=== PATIENT | male | born 1945 | race Caucasian/White ===

== ENCOUNTER 2019-03-28 00:50 | Inpatient (IN) | payer BC | END 2019-03-29 14:40 | disposition home or self-care (01) | LOC: ER 00:50 → TELE 09:00 → TELE-WESTW 16:53 | PROC: 02703DZ Dilation of Coronary Artery, One Artery with Intraluminal Device, Percutaneous Approach (ICD-10-PCS; principal; ~2019-03-28) | PROC: B2111ZZ Fluoroscopy of Multiple Coronary Arteries using Low Osmolar Contrast (ICD-10-PCS; ~2019-03-28) | PROC: 4A023N7 Measurement of Cardiac Sampling and Pressure, Left Heart, Percutaneous Approach (ICD-10-PCS; ~2019-03-28) | PROC: B2151ZZ Fluoroscopy of Left Heart using Low Osmolar Contrast (ICD-10-PCS; ~2019-03-28) | DX: I21.4 Non-ST elevation (NSTEMI) myocardial infarction (principal); I25.10 Atherosclerotic heart disease of native coronary artery without angina pectoris; J44.9 Chronic obstructive pulmonary disease, unspecified; E78.5 Hyperlipidemia, unspecified; I12.9 Hypertensive chronic kidney disease with stage 1 through stage 4 chronic kidney disease, or unspecified chronic kidney disease; N18.9 Chronic kidney disease, unspecified ==

== ENCOUNTER 2023-08-29 09:31 | Inpatient (IN) | payer BC, OTHER ==
[~2023-08-29] VITALS: Ht 160 cm; Wt 79.5 kg
[~2023-08-29 09:31] MED LIST: ASA PO; PLAVIX PO
[2023-08-29 10:20] VITALS: PULSE 79; RESP 18; O2SAT 91
[2023-08-29 10:47] LABS: Basophils # (auto) 0 10 ^3/uL (0-0.2); Basophils % (auto) 0.4 % (0.0-2.0); Eosinophils # (auto) 0.1 10 ^3/uL (0-0.8); Eosinophils % (auto) 1.1 % (0.0-7.0); Hematocrit 50.3 % (41.0-53.0); Hemoglobin 16.2 g/dL (13.5-17.5); Lymphocytes # (auto) 1.5 10 ^3/uL (0.4-5.4); Lymphocytes % (auto) 15.7 % (10.0-50.0); Mean Corpuscular Hemoglobin 28.7 pg (28.0-32.0); Mean Corpuscular Hgb Conc. 32.3 g/dL (32.0-36.0); Monocytes # (auto) 0.7 10 ^3/uL (0-1.3); Neutrophils # (auto) 7.3 10 ^3/uL (1.6-8.6); Neutrophils % (auto) 75.8 % (37.0-80.0); Nucleated Red Blood Cells % 0.2 %; Red Blood Cells 5.65 10^6/uL (4.5-5.90); White Blood Cell 9.7 10^3/uL (4.4-10.8)
[2023-08-29 11:11] LABS: Alanine Aminotransferase 547 U/L (7-40); Albumin 3.8 g/dL (3.2-4.8); Alkaline Phosphatase 256 U/L (46-116); Anion Gap 7 (5-15); Aspartate Aminotransferase 591 U/L (13-40); BUN/Creatinine Ratio 16.4 (10.0-20.0); Bilirubin, Total 0.9 mg/dL (0.2-1.0); Blood Urea Nitrogen 39 mg/dL (9-23); Calcium 9.1 mg/dL (8.5-10.1); Carbon Dioxide 24 mmol/L (20-30); Chloride 103 mmol/L (98-107); Glucose 131 mg/dL (74-106); Sodium 134 mmol/L (136-145)
[2023-08-29 11:12] LABS: Total Protein 6.6 g/dL (5.7-8.2)
[2023-08-29] MEDS ORDERED: cefTRIAXone 1GM/50ML D5W 50 ML IV ONE (11:15)
[2023-08-29] MEDS ORDERED: LACTULOSE 20Gm/30ML SOLN PO ONE (11:30)
[2023-08-29 11:44] LABS: Potassium 6.9 mmol/L (3.5-5.1)
[2023-08-29] MEDS ORDERED: SODIUM ZIRCONIUM CYCL 10 GM PAK PO ONE (12:00)
[2023-08-29] MEDS ORDERED: FUROSEMIDE 20 MG/2 ML VIAL IV ONE (12:00)
[2023-08-29] MEDS ORDERED: InsuLIN REG 1unit/0.01ml Soln (100units/ml) IV ONE (12:00)
[2023-08-29] MEDS ORDERED: ALBUTEROL SULF 2.5 MG/0.5ML(0.5%) NEB SOLN NEB ONE (12:00)
[2023-08-29] MEDS ORDERED: SODIUM BICARBONATE 8.4% INJ 50ML SYRINGE IV ONE (12:00)
[2023-08-29] MEDS ORDERED: CALCIUM GLUC 1,000mg/50ml-NS 50 ML IV ONE (12:00)
[2023-08-29] MEDS ORDERED: DEXTROSE (50%) 50ML SYRG IV ONE (12:00)
[2023-08-29 13:10] LABS: Urine Bacteria MOD /hpf (None Seen); Urine Blood Negative /uL (Negative); Urine Clarity HAZY (Clear); Urine Color Colorless (Yellow); Urine Protein, UAD TRACE (Negative); Urine Specific Gravity 1.009 (1.001-1.035); Urine Urobilinogen Normal (Negative); Urine WBC 70 /hpf (0 - 3)
[2023-08-29] MEDS ORDERED: SODIUM CHLORIDE 0.9% 1,000 ML IV ONE ×2 (14:45→17:00)
[2023-08-29] MEDS ORDERED: LEVO750T8 PO ×2 (16:34)
[2023-08-29] MEDS ORDERED: PIPERACILLIN-TAZO 4.5GM 100 ML IV ONE (17:00)
[2023-08-29] MEDS ORDERED: MORPHINE SULFATE INJ 2 MG/ml SYRG IV PRN (17:00)
[2023-08-29] MEDS ORDERED: PIPERACILLIN-TAZOB 2.25GM 50 ML IV SCH (17:00)
[2023-08-29] MEDS ORDERED: NITROGLYCERIN 0.4 MG SL TAB SL PRN (17:00)
[2023-08-29 17:17] LABS: Base Excess 0.3 mmol/L (-2.0-2.0)
[2023-08-29] MEDS ORDERED: LACTULOSE 20Gm/30ML SOLN PO PRN (18:15)
[2023-08-29] MEDS ORDERED: HYDROcodone-ACET 5/325MG TAB PO PRN (18:15)
[2023-08-29 18:45] VITALS: BP 136/84; PULSE 72; RESP 20; O2SAT 94
[2023-08-29 18:52] LABS: Alanine Aminotransferase 482 U/L (7-40); Albumin 3.9 g/dL (3.2-4.8); Alkaline Phosphatase 221 U/L (46-116); Anion Gap 8 (5-15); Aspartate Aminotransferase 424 U/L (13-40); BUN/Creatinine Ratio 11.5 (10.0-20.0); Calcium 8.9 mg/dL (8.5-10.1); Carbon Dioxide 24 mmol/L (20-30); Chloride 107 mmol/L (98-107); Glucose 115 mg/dL (74-106); Sodium 139 mmol/L (136-145)
[2023-08-29 18:53] LABS: Bilirubin, Total 0.8 mg/dL (0.2-1.0); Total Protein 6.9 g/dL (5.7-8.2)
[2023-08-29 18:55] LABS: Blood Urea Nitrogen 26 mg/dL (9-23)
[2023-08-29 19:15] VITALS: PULSE 77; RESP 20; O2SAT 91
[2023-08-29] MEDS: methylPREDNISolone SOD SUCC 40 MG/ML VL IV SCH (22:13)
[2023-08-29 22:32] VITALS: BP 104/67; PULSE 61; RESP 20; TEMP 97.5; O2SAT 95
[2023-08-29 23:34] VITALS: BP 104/67; PULSE 61; RESP 20; TEMP 36.4; O2SAT 95
[2023-08-30] VITALS (10 sets, daily range): BP systolic 105–136; BP diastolic 41–81; PULSE 56–87; RESP 18–20; TEMP 97.3–97.9; O2SAT 91–98
[2023-08-30 05:42] LABS: Basophils # (auto) 0 10 ^3/uL (0-0.2); Basophils % (auto) 0.2 % (0.0-2.0); Eosinophils # (auto) 0 10 ^3/uL (0-0.8); Hematocrit 44.8 % (41.0-53.0); Hemoglobin 14.2 g/dL (13.5-17.5); Lymphocytes # (auto) 0.6 10 ^3/uL (0.4-5.4); Lymphocytes % (auto) 6.8 % (10.0-50.0); Mean Corpuscular Hemoglobin 28.3 pg (28.0-32.0); Mean Corpuscular Hgb Conc. 31.8 g/dL (32.0-36.0); Mean Corpuscular Volume 88.9 fL (80.0-100.0); Monocytes # (auto) 0.1 10 ^3/uL (0-1.3); Monocytes % (auto) 1.5 % (0.0-12.0); Neutrophils # (auto) 8.5 10 ^3/uL (1.6-8.6); Neutrophils % (auto) 91.5 % (37.0-80.0); Red Blood Cells 5.04 10^6/uL (4.5-5.90); Red Cell Distribution Width 17.1 % (11.8-14.3); White Blood Cell 9.3 10^3/uL (4.4-10.8)
[2023-08-30] MEDS: methylPREDNISolone SOD SUCC 40 MG/ML VL IV SCH ×3 (05:48→21:15)
[2023-08-30] MEDS: PIPERACILLIN-TAZOB 3.375GM 100 ML IV SCH ×2 (05:49→17:55)
[2023-08-30 05:58] LABS: Alanine Aminotransferase 358 U/L (7-40); Albumin 3.4 g/dL (3.2-4.8); Alkaline Phosphatase 170 U/L (46-116); Anion Gap 6 (5-15); Aspartate Aminotransferase 236 U/L (13-40); BUN/Creatinine Ratio 12.1 (10.0-20.0); Bilirubin, Total 0.9 mg/dL (0.2-1.0); Blood Urea Nitrogen 24 mg/dL (9-23); Calcium 8.4 mg/dL (8.5-10.1); Carbon Dioxide 26 mmol/L (20-30); Chloride 108 mmol/L (98-107); Glucose 140 mg/dL (74-106); Potassium 4.8 mmol/L (3.5-5.1); Sodium 140 mmol/L (136-145); Total Protein 5.9 g/dL (5.7-8.2)
[2023-08-30] MEDS ORDERED: AZITHROMYCIN 500MG/ 250ML 250 ML IV SCH (10:00)
[2023-08-30] MEDS: ALBUTEROL SULF 2.5 MG/0.5ML(0.5%) NEB SOLN NEB PRN (10:45)
[2023-08-31] VITALS (12 sets, daily range): BP systolic 112–139; BP diastolic 59–76; PULSE 57–74; RESP 16–20; TEMP 97.5–98.6; O2SAT 91–100
[2023-08-31] MEDS: PIPERACILLIN-TAZOB 3.375GM 100 ML IV SCH ×2 (05:30→21:17)
[2023-08-31] MEDS: methylPREDNISolone SOD SUCC 40 MG/ML VL IV SCH ×3 (05:30→21:16)
[2023-08-31 06:45] LABS: Basophils # (auto) 0 10 ^3/uL (0-0.2); Basophils % (auto) 0.2 % (0.0-2.0); Eosinophils # (auto) 0 10 ^3/uL (0-0.8); Hematocrit 44.2 % (41.0-53.0); Hemoglobin 14.4 g/dL (13.5-17.5); Lymphocytes # (auto) 0.8 10 ^3/uL (0.4-5.4); Lymphocytes % (auto) 5.7 % (10.0-50.0); Mean Corpuscular Hemoglobin 28.7 pg (28.0-32.0); Mean Corpuscular Hgb Conc. 32.7 g/dL (32.0-36.0); Mean Corpuscular Volume 87.9 fL (80.0-100.0); Monocytes # (auto) 0.4 10 ^3/uL (0-1.3); Neutrophils # (auto) 12.3 10 ^3/uL (1.6-8.6); Neutrophils % (auto) 91.1 % (37.0-80.0); Red Blood Cells 5.03 10^6/uL (4.5-5.90); Red Cell Distribution Width 16.9 % (11.8-14.3); White Blood Cell 13.5 10^3/uL (4.4-10.8)
[2023-08-31] MEDS: ALBUTEROL SULF 2.5 MG/0.5ML(0.5%) NEB SOLN NEB PRN ×2 (06:49→11:31)
[2023-08-31 07:07] LABS: Alanine Aminotransferase 273 U/L (7-40); Albumin 3.7 g/dL (3.2-4.8); Alkaline Phosphatase 169 U/L (46-116); Anion Gap 7 (5-15); Aspartate Aminotransferase 107 U/L (13-40); BUN/Creatinine Ratio 14.7 (10.0-20.0); Bilirubin, Total 0.7 mg/dL (0.2-1.0); Blood Urea Nitrogen 23 mg/dL (9-23); Calcium 8.7 mg/dL (8.5-10.1); Carbon Dioxide 26 mmol/L (20-30); Chloride 107 mmol/L (98-107); Glucose 192 mg/dL (74-106); Potassium 4.9 mmol/L (3.5-5.1); Sodium 140 mmol/L (136-145)
[2023-08-31 07:08] LABS: Total Protein 6.3 g/dL (5.7-8.2)
[2023-08-31] MEDS ORDERED: POLYETHYLENE GLYCOL 17 GM PWDR PO PRN (08:30)
[2023-08-31] MEDS ORDERED: DEXTROSE (50%) 50ML SYRG IV PRN (08:45)
[2023-08-31] MEDS: ACCU-CHEK COMFORT CURVE STRIP VI SCH ×3 (14:00→21:21)
[2023-08-31] MEDS: InsuLIN REG 1unit/0.01ml Soln (100units/ml) SC SCH ×3 (14:02→21:21)
[2023-08-31] MEDS: DOXYCYCLINE 100 MG TAB/CAP PO SCH (21:15)
[2023-09-01] VITALS (15 sets, daily range): BP systolic 114–145; BP diastolic 64–89; PULSE 51–113; RESP 16–30; TEMP 97.4–98.1; O2SAT 85–95
[2023-09-01] MEDS: ALBUTEROL SULF 2.5 MG/0.5ML(0.5%) NEB SOLN NEB PRN ×3 (02:17→20:06)
[2023-09-01] MEDS: methylPREDNISolone SOD SUCC 40 MG/ML VL IV SCH ×3 (03:00→21:55)
[2023-09-01] MEDS: PIPERACILLIN-TAZOB 3.375GM 100 ML IV SCH ×3 (05:40→22:01)
[2023-09-01] MEDS: InsuLIN REG 1unit/0.01ml Soln (100units/ml) SC SCH ×4 (05:45→22:28)
[2023-09-01] MEDS: ACCU-CHEK COMFORT CURVE STRIP VI SCH ×4 (05:46→22:27)
[2023-09-01 06:49] LABS: Basophils # (auto) 0.1 10 ^3/uL (0-0.2); Basophils % (auto) 0.4 % (0.0-2.0); Eosinophils # (auto) 0 10 ^3/uL (0-0.8); Hematocrit 45.4 % (41.0-53.0); Hemoglobin 14.6 g/dL (13.5-17.5); Lymphocytes # (auto) 0.4 10 ^3/uL (0.4-5.4); Lymphocytes % (auto) 3.3 % (10.0-50.0); Mean Corpuscular Hemoglobin 28.6 pg (28.0-32.0); Mean Corpuscular Hgb Conc. 32.3 g/dL (32.0-36.0); Mean Corpuscular Volume 88.6 fL (80.0-100.0); Monocytes # (auto) 0.3 10 ^3/uL (0-1.3); Monocytes % (auto) 2.3 % (0.0-12.0); Neutrophils # (auto) 11.6 10 ^3/uL (1.6-8.6); Nucleated Red Blood Cells % 0.1 %; Red Blood Cells 5.12 10^6/uL (4.5-5.90); Red Cell Distribution Width 17.2 % (11.8-14.3); White Blood Cell 12.3 10^3/uL (4.4-10.8)
[2023-09-01 07:00] LABS: Alanine Aminotransferase 223 U/L (7-40); Albumin 3.8 g/dL (3.2-4.8); Alkaline Phosphatase 145 U/L (46-116); Anion Gap 8 (5-15); Aspartate Aminotransferase 69 U/L (13-40); BUN/Creatinine Ratio 13.3 (10.0-20.0); Blood Urea Nitrogen 22 mg/dL (9-23); Carbon Dioxide 27 mmol/L (20-30); Chloride 108 mmol/L (98-107); Glucose 238 mg/dL (74-106); Potassium 5.4 mmol/L (3.5-5.1); Sodium 143 mmol/L (136-145)
[2023-09-01 07:01] LABS: Bilirubin, Total 0.9 mg/dL (0.2-1.0); Total Protein 6.5 g/dL (5.7-8.2)
[2023-09-01] MEDS: DOXYCYCLINE 100 MG TAB/CAP PO SCH ×2 (10:06→21:53)
[2023-09-01] MEDS ORDERED: SODIUM ZIRCONIUM CYCL 10 GM PAK PO ONE (16:00)
[2023-09-01] MEDS: INSULIN LANTUS (GLARGINE) 1 /0.01ml (100units/ml) SC SCH (22:28)
[2023-09-02] VITALS (13 sets, daily range): BP systolic 130–179; BP diastolic 66–96; PULSE 69–104; RESP 17–24; TEMP 97.5–98.6; O2SAT 85–97
[2023-09-02] MEDS: ALBUTEROL SULF 2.5 MG/0.5ML(0.5%) NEB SOLN NEB PRN ×3 (03:16→12:18)
[2023-09-02] MEDS: methylPREDNISolone SOD SUCC 40 MG/ML VL IV SCH ×3 (06:26→22:15)
[2023-09-02] MEDS: InsuLIN REG 1unit/0.01ml Soln (100units/ml) SC SCH ×4 (06:27→22:22)
[2023-09-02] MEDS: ACCU-CHEK COMFORT CURVE STRIP VI SCH ×3 (06:27→16:58)
[2023-09-02 06:41] LABS: Basophils # (auto) 0 10 ^3/uL (0-0.2); Basophils % (auto) 0.1 % (0.0-2.0); Eosinophils # (auto) 0 10 ^3/uL (0-0.8); Hematocrit 47.6 % (41.0-53.0); Hemoglobin 15.3 g/dL (13.5-17.5); Lymphocytes # (auto) 0.4 10 ^3/uL (0.4-5.4); Lymphocytes % (auto) 3.1 % (10.0-50.0); Mean Corpuscular Hemoglobin 28.5 pg (28.0-32.0); Mean Corpuscular Hgb Conc. 32.2 g/dL (32.0-36.0); Mean Corpuscular Volume 88.5 fL (80.0-100.0); Monocytes # (auto) 0.6 10 ^3/uL (0-1.3); Neutrophils # (auto) 13.1 10 ^3/uL (1.6-8.6); Neutrophils % (auto) 92.8 % (37.0-80.0); Nucleated Red Blood Cells % 0.1 %; Red Blood Cells 5.38 10^6/uL (4.5-5.90); Red Cell Distribution Width 17.2 % (11.8-14.3); White Blood Cell 14.1 10^3/uL (4.4-10.8)
[2023-09-02 06:49] LABS: Alanine Aminotransferase 186 U/L (7-40); Albumin 3.9 g/dL (3.2-4.8); Alkaline Phosphatase 136 U/L (46-116); Aspartate Aminotransferase 55 U/L (13-40); BUN/Creatinine Ratio 13.5 (10.0-20.0); Bilirubin, Total 1.5 mg/dL (0.2-1.0); Blood Urea Nitrogen 21 mg/dL (9-23); Calcium 9.2 mg/dL (8.5-10.1); Chloride 108 mmol/L (98-107); Glucose 209 mg/dL (74-106); Potassium 5.2 mmol/L (3.5-5.1); Sodium 145 mmol/L (136-145); Total Protein 6.7 g/dL (5.7-8.2)
[2023-09-02 06:56] LABS: Anion Gap 12 (5-15); Carbon Dioxide 25 mmol/L (20-30)
[2023-09-02] MEDS: IPRATROPIUM BROM 0.5 MG/2.5ML INH SOL NEB PRN ×2 (07:59→12:18)
[2023-09-02] MEDS: DOXYCYCLINE 100 MG TAB/CAP PO SCH ×2 (09:27→22:15)
[2023-09-02] MEDS: FUROSEMIDE 20 MG/2 ML VIAL IV SCH (09:28)
[2023-09-02] MEDS: PIPERACILLIN-TAZOB 3.375GM 100 ML IV SCH ×2 (09:29→12:29)
[2023-09-02] MEDS ORDERED: FUROSEMIDE 20 MG/2 ML VIAL IV ONE (09:45)
[2023-09-02] MEDS: INSULIN LANTUS (GLARGINE) 1 /0.01ml (100units/ml) SC SCH (22:26)
[2023-09-03] VITALS (11 sets, daily range): BP systolic 128–145; BP diastolic 87–93; PULSE 59–110; RESP 14–20; TEMP 97.4–97.8; O2SAT 90–97
[2023-09-03] MEDS: InsuLIN REG 1unit/0.01ml Soln (100units/ml) SC SCH ×4 (07:07→22:34)
[2023-09-03] MEDS: methylPREDNISolone SOD SUCC 40 MG/ML VL IV SCH ×3 (07:17→21:54)
[2023-09-03] MEDS: PIPERACILLIN-TAZOB 3.375GM 100 ML IV SCH ×2 (10:21→21:38)
[2023-09-03] MEDS: FUROSEMIDE 20 MG/2 ML VIAL IV SCH (10:23)
[2023-09-03] MEDS: DOXYCYCLINE 100 MG TAB/CAP PO SCH ×2 (10:23→21:44)
[2023-09-03] MEDS ORDERED: DEXTROSE (50%) 50ML SYRG IV PRN (11:00)
[2023-09-03] MEDS ORDERED: FUROSEMIDE 20 MG/2 ML VIAL IV ONE (11:00)
[2023-09-03] MEDS: ACCU-CHEK COMFORT CURVE STRIP VI SCH ×3 (11:25→21:52)
[2023-09-03] MEDS: IPRATROPIUM BROM 0.5 MG/2.5ML INH SOL NEB PRN (15:38)
[2023-09-03] MEDS: ALBUTEROL SULF 2.5 MG/0.5ML(0.5%) NEB SOLN NEB PRN (15:38)
[2023-09-03] MEDS ORDERED: INSULIN LANTUS (GLARGINE) 1 /0.01ml (100units/ml) SC SCH (22:00)
[2023-09-04] VITALS (9 sets, daily range): BP systolic 136–142; BP diastolic 72–86; PULSE 60–94; RESP 16–20; TEMP 97.3–98.6; O2SAT 94–99
[2023-09-04] MEDS: methylPREDNISolone SOD SUCC 40 MG/ML VL IV SCH ×3 (05:36→22:07)
[2023-09-04] MEDS: ACCU-CHEK COMFORT CURVE STRIP VI SCH ×4 (05:40→22:18)
[2023-09-04] MEDS: InsuLIN REG 1unit/0.01ml Soln (100units/ml) SC SCH ×5 (06:34→22:21)
[2023-09-04] MEDS: DOXYCYCLINE 100 MG TAB/CAP PO SCH ×2 (09:37→22:04)
[2023-09-04] MEDS: PIPERACILLIN-TAZOB 3.375GM 100 ML IV SCH ×2 (09:37→22:05)
[2023-09-04] MEDS ORDERED: FUROSEMIDE 20 MG/2 ML VIAL IV SCH (10:00)
[2023-09-04] MEDS: FUROSEMIDE 20 MG/2 ML VIAL IV SCH ×2 (10:30→22:10)
[2023-09-04 10:53] LABS: Hematocrit 49.9 % (41.0-53.0); Hemoglobin 15.8 g/dL (13.5-17.5); Mean Corpuscular Hemoglobin 27.9 pg (28.0-32.0); Mean Corpuscular Hgb Conc. 31.7 g/dL (32.0-36.0); Mean Corpuscular Volume 88.1 fL (80.0-100.0); Red Blood Cells 5.67 10^6/uL (4.5-5.90); Red Cell Distribution Width 17.5 % (11.8-14.3); White Blood Cell 16.7 10^3/uL (4.4-10.8)
[2023-09-04 11:07] LABS: Basophils % (manual) 0 (0.0-2.0); Blast Cells 0; Eosinophils % (manual) 0 (0-7); Metamyelocytes % 0; Myelocytes % 0; Promyelocytes % 0; Reactive Lymphocytes 0
[2023-09-04 11:21] LABS: Alanine Aminotransferase 111 U/L (7-40); Albumin 3.9 g/dL (3.2-4.8); Alkaline Phosphatase 112 U/L (46-116); Anion Gap 7 (5-15); Aspartate Aminotransferase 44 U/L (13-40); BUN/Creatinine Ratio 17.6 (10.0-20.0); Bilirubin, Total 1.7 mg/dL (0.2-1.0); Blood Urea Nitrogen 27 mg/dL (9-23); Calcium 9.4 mg/dL (8.5-10.1); Carbon Dioxide 34 mmol/L (20-30); Chloride 102 mmol/L (98-107); Glucose 207 mg/dL (74-106); Sodium 143 mmol/L (136-145)
[2023-09-04 11:22] LABS: Total Protein 6.8 g/dL (5.7-8.2)
[2023-09-04 11:28] LABS: Band Neutrophils % (manual) 2; Lymphocytes % (manual) 6 (10.0-50.0); Monocytes % (manual) 6 (0-12)
[2023-09-04 11:29] LABS: Anisocytosis Slight; Hypochromia Slight; Platelet Estimate Adequate
[2023-09-04] MEDS ORDERED: INSULIN LANTUS (GLARGINE) 1 /0.01ml (100units/ml) SC SCH (22:00)
[2023-09-05] VITALS (12 sets, daily range): BP systolic 107–144; BP diastolic 68–90; PULSE 55–88; RESP 14–22; TEMP 97.4–97.8; O2SAT 91–98
[2023-09-05] MEDS: methylPREDNISolone SOD SUCC 40 MG/ML VL IV SCH ×3 (06:08→22:05)
[2023-09-05] MEDS: ACCU-CHEK COMFORT CURVE STRIP VI SCH ×4 (06:57→22:43)
[2023-09-05] MEDS: FUROSEMIDE 20 MG/2 ML VIAL IV SCH (09:34)
[2023-09-05] MEDS: DOXYCYCLINE 100 MG TAB/CAP PO SCH ×2 (09:34→22:07)
[2023-09-05] MEDS: PIPERACILLIN-TAZOB 3.375GM 100 ML IV SCH ×2 (09:35→22:08)
[2023-09-05 09:46] LABS: Basophils # (auto) 0 10 ^3/uL (0-0.2); Eosinophils # (auto) 0 10 ^3/uL (0-0.8); Red Cell Distribution Width 17.4 % (11.8-14.3)
[2023-09-05 10:12] LABS: Alanine Aminotransferase 102 U/L (7-40); Albumin 3.6 g/dL (3.2-4.8); Alkaline Phosphatase 123 U/L (46-116); Anion Gap 8 (5-15); Aspartate Aminotransferase 39 U/L (13-40); BUN/Creatinine Ratio 15.5 (10.0-20.0); Blood Urea Nitrogen 24 mg/dL (9-23); Calcium 8.9 mg/dL (8.7-10.4); Carbon Dioxide 30 mmol/L (20-30); Chloride 102 mmol/L (98-107); Glucose 286 mg/dL (74-106); Magnesium 2.6 mg/dL (1.6-2.6); Sodium 140 mmol/L (136-145)
[2023-09-05 10:13] LABS: Bilirubin, Total 1.6 mg/dL (0.2-1.0); Total Protein 6.4 g/dL (5.7-8.2)
[2023-09-05 10:24] LABS: Basophils % (auto) 0.2 % (0.0-2.0); Hematocrit 50.6 % (41.0-53.0); Hemoglobin 15.9 g/dL (13.5-17.5); Lymphocytes # (auto) 0.5 10 ^3/uL (0.4-5.4); Lymphocytes % (auto) 3.5 % (10.0-50.0); Mean Corpuscular Hemoglobin 28.1 pg (28.0-32.0); Mean Corpuscular Hgb Conc. 31.4 g/dL (32.0-36.0); Mean Corpuscular Volume 89.3 fL (80.0-100.0); Monocytes # (auto) 0.3 10 ^3/uL (0-1.3); Monocytes % (auto) 1.8 % (0.0-12.0); Neutrophils # (auto) 12.8 10 ^3/uL (1.6-8.6); Neutrophils % (auto) 94.5 % (37.0-80.0); Nucleated Red Blood Cells % 0.3 %; Red Blood Cells 5.66 10^6/uL (4.5-5.90); White Blood Cell 13.6 10^3/uL (4.4-10.8)
[2023-09-05] MEDS: InsuLIN REG 1unit/0.01ml Soln (100units/ml) SC SCH ×3 (11:48→22:42)
[2023-09-05 12:22] LABS: Protein, Urine 7.8 mg/dL (0.0-11.9)
[2023-09-05 12:25] LABS: Creatinine, Urine 10.45 mg/dL (30.0-125.0); Urine Protein/Creatinine Ratio 0.75
[2023-09-05] MEDS: ALBUTEROL SULF 2.5 MG/0.5ML(0.5%) NEB SOLN NEB PRN (13:42)
[2023-09-05] MEDS: IPRATROPIUM BROM 0.5 MG/2.5ML INH SOL NEB PRN (13:42)
[2023-09-05] MEDS ORDERED: ALBUMIN 5% 50 ML IV ONE (15:30)
[2023-09-05] MEDS ORDERED: ALBUMIN 5% 250 ML IV ONE (17:45)
[2023-09-05] MEDS: INSULIN LISPRO (HUMAN) 100 UNITS/ML ML SC SCH (18:42)
[2023-09-05] MEDS ORDERED: INSULIN LANTUS (GLARGINE) 1 /0.01ml (100units/ml) SC SCH (22:00)
[2023-09-05] MEDS: FUROSEMIDE 100 MG/10ML VIAL IV SCH (22:24)
[2023-09-06] VITALS (9 sets, daily range): BP systolic 120–142; BP diastolic 70–92; PULSE 54–71; RESP 15–19; TEMP 36.7; O2SAT 90–93
[2023-09-06 05:24] LABS: Basophils # (auto) 0 10 ^3/uL (0-0.2); Basophils % (auto) 0.2 % (0.0-2.0); Eosinophils # (auto) 0 10 ^3/uL (0-0.8); Hematocrit 48.8 % (41.0-53.0); Hemoglobin 15.8 g/dL (13.5-17.5); Lymphocytes # (auto) 0.5 10 ^3/uL (0.4-5.4); Lymphocytes % (auto) 3.5 % (10.0-50.0); Mean Corpuscular Hemoglobin 28.7 pg (28.0-32.0); Mean Corpuscular Hgb Conc. 32.4 g/dL (32.0-36.0); Mean Corpuscular Volume 88.6 fL (80.0-100.0); Monocytes # (auto) 0.5 10 ^3/uL (0-1.3); Monocytes % (auto) 2.9 % (0.0-12.0); Neutrophils # (auto) 14.4 10 ^3/uL (1.6-8.6); Neutrophils % (auto) 93.4 % (37.0-80.0); Red Blood Cells 5.51 10^6/uL (4.5-5.90); Red Cell Distribution Width 16.5 % (11.8-14.3); White Blood Cell 15.4 10^3/uL (4.4-10.8)
[2023-09-06 05:41] LABS: Alanine Aminotransferase 86 U/L (7-40); Alkaline Phosphatase 105 U/L (46-116); Anion Gap 5 (5-15); Aspartate Aminotransferase 25 U/L (13-40); BUN/Creatinine Ratio 22.2 (10.0-20.0); Bilirubin, Total 1.8 mg/dL (0.2-1.0); Blood Urea Nitrogen 32 mg/dL (9-23); Calcium 9.3 mg/dL (8.5-10.1); Carbon Dioxide 38 mmol/L (20-30); Chloride 100 mmol/L (98-107); Potassium 4.9 mmol/L (3.5-5.1); Sodium 143 mmol/L (136-145); Total Protein 6.6 g/dL (5.7-8.2)
[2023-09-06 05:47] LABS: Glucose 127 mg/dL (74-106)
[2023-09-06] MEDS: FUROSEMIDE 100 MG/10ML VIAL IV SCH (06:45)
[2023-09-06] MEDS: InsuLIN REG 1unit/0.01ml Soln (100units/ml) SC SCH ×3 (06:51→17:25)
[2023-09-06] MEDS: INSULIN LISPRO (HUMAN) 100 UNITS/ML ML SC SCH ×3 (06:52→17:24)
[2023-09-06] MEDS: ACCU-CHEK COMFORT CURVE STRIP VI SCH ×3 (06:52→17:05)
[2023-09-06] MEDS: PIPERACILLIN-TAZOB 3.375GM 100 ML IV SCH (09:27)
[2023-09-06] MEDS: DOXYCYCLINE 100 MG TAB/CAP PO SCH (09:27)
[2023-09-06] MEDS: methylPREDNISolone SOD SUCC 40 MG/ML VL IV SCH (09:27)
[2023-09-06 09:58] LABS: Base Excess 8.6 mmol/L (-2.0-2.0)
[2023-09-06] MEDS ORDERED: SACU1TAB PO (15:23)
[2023-09-06] MEDS ORDERED: DICL75TA2 PO (15:42)
[2023-09-06] MEDS ORDERED: FURO20TA3 PO (15:42)
[2023-09-06] MEDS ORDERED: LOPE-20 PO (15:42)
[2023-09-06] MEDS ORDERED: GABA-1250 PO (15:42)
[2023-09-06] MEDS ORDERED: EMPA1TAB3 PO (15:42)
[2023-09-06] MEDS ORDERED: ATOR10TA52 PO (15:42)
[2023-09-06] MEDS ORDERED: METO25TA93 PO (15:42)
[2023-09-06] MEDS ORDERED: SPIR25TA8 PO (15:42)
[2023-09-06] MEDS ORDERED: CEPH500C PO (15:42)
[2023-09-06] MEDS ORDERED: FURO40TA4 PO (16:07)
[2023-09-06] MEDS ORDERED: PRE5T PO (16:14)
[2023-09-06] MEDS ORDERED: ATOR-47 PO (16:16)
[2023-09-06] MEDS ORDERED: FLUT250M2 INH (16:18)
[2023-09-06] MEDS ORDERED: ALBUAER3 IN ×2 (16:19)
[2023-09-06] MEDS ORDERED: FUROSEMIDE 100 MG/10ML VIAL IV ONE (16:30)
[2023-09-06] MEDS ORDERED: FUROSEMIDE 40 MG TAB PO ONE (17:15)
== END 2023-09-06 18:48 | disposition home health service (06) | DRG 291 ==
LOC: ER 09:31 → TELE 17:19 → TELE-WESTW 21:42
PROVIDERS: ADMIT Internal Medicine; ATTEND Student in an Organized Health Care Education/Training Program
DX: I13.0 Hypertensive heart and chronic kidney disease with heart failure and stage 1 through stage 4 chronic kidney disease, or unspecified chronic kidney disease (principal); I50.23 Acute on chronic systolic (congestive) heart failure; J96.21 Acute and chronic respiratory failure with hypoxia; N17.0 Acute kidney failure with tubular necrosis; N39.0 Urinary tract infection, site not specified; J44.1 Chronic obstructive pulmonary disease with (acute) exacerbation; E87.5 Hyperkalemia; E11.22 Type 2 diabetes mellitus with diabetic chronic kidney disease; E78.5 Hyperlipidemia, unspecified; E11.65 Type 2 diabetes mellitus with hyperglycemia; F17.210 Nicotine dependence, cigarettes, uncomplicated; I25.10 Atherosclerotic heart disease of native coronary artery without angina pectoris; I25.5 Ischemic cardiomyopathy; K59.00 Constipation, unspecified; T38.0X5A Adverse effect of glucocorticoids and synthetic analogues, initial encounter; I25.2 Old myocardial infarction; Y92.89 Other specified places as the place of occurrence of the external cause; Z63.4 Disappearance and death of family member; Z86.79 Personal history of other diseases of the circulatory system; Z90.5 Acquired absence of kidney; Z95.1 Presence of aortocoronary bypass graft; Z95.810 Presence of automatic (implantable) cardiac defibrillator; Z98.61 Coronary angioplasty status; Z99.81 Dependence on supplemental oxygen; J43.9 Emphysema, unspecified; N18.31 Chronic kidney disease, stage 3a
CPT/HCPCS: 36415; 36600; 71045; 71250; 74176; 76775; 80053; 81001; 82306; 82570; 82805; 82962; 83036; 83735; 83880; 83970; 84100; 84132; 84156; 84300; 84484; 85007; 85025; 85027; 87040; 87070; 87077; 87086; 87205; 93005; 93306; 94640; 96361; 96365; 96367; 96368; 96375; 97116; 97163; 97530; 99291; G0378; J0696; J1815; J2543

== ENCOUNTER 2023-09-10 15:06 | Inpatient (IN) | payer OTHER ==
[~2023-09-10] VITALS: Ht 172.7 cm; Wt 74.1 kg
[~2023-09-10 15:06] MED LIST changes: +ALBUAER3 IN; +ATOR-47 PO; +EMPA1TAB3 PO; +FLUT250M2 INH; +FURO40TA4 PO; +GABA-1250 PO; +METO25TA93 PO; +PRE5T PO; +SACU1TAB PO; +SPIR25TA8 PO
[2023-09-10] MEDS: SODIUM CHLORIDE 0.9% 1,000 ML IV ONE ×2 (15:40→15:41)
[2023-09-10 15:41] LABS: Basophils # (auto) 0.1 10 ^3/uL (0-0.2); Basophils % (auto) 0.3 % (0.0-2.0); Eosinophils # (auto) 0 10 ^3/uL (0-0.8); Eosinophils % (auto) 0.1 % (0.0-7.0); Mean Corpuscular Volume 86.4 fL (80.0-100.0); Monocytes # (auto) 1.2 10 ^3/uL (0-1.3); Nucleated Red Blood Cells % 0.1 %; Red Cell Distribution Width 16.8 % (11.8-14.3)
[2023-09-10 15:42] LABS: Hematocrit 55.3 % (41.0-53.0); Hemoglobin 18.2 g/dL (13.5-17.5); Lymphocytes # (auto) 1.8 10 ^3/uL (0.4-5.4); Lymphocytes % (auto) 7.8 % (10.0-50.0); Mean Corpuscular Hemoglobin 28.5 pg (28.0-32.0); Monocytes % (auto) 5.2 % (0.0-12.0); Neutrophils # (auto) 19.9 10 ^3/uL (1.6-8.6); Neutrophils % (auto) 86.6 % (37.0-80.0)
[2023-09-10 15:43] VITALS: PULSE 83; RESP 22; O2SAT 92
[2023-09-10 15:57] LABS: INR 1.34 (0.9-1.15); Partial Thromboplastin Time 26.5 SEC (24.5-34.5); Prothrombin Time 13.8 sec (9.3-11.8)
[2023-09-10 15:58] LABS: Alanine Aminotransferase 42 U/L (7-40); Alkaline Phosphatase 124 U/L (46-116); Anion Gap 5 (5-15); BUN/Creatinine Ratio 31.9 (10.0-20.0); Blood Urea Nitrogen 74 mg/dL (9-23); Calcium 9.5 mg/dL (8.7-10.4); Carbon Dioxide 34 mmol/L (20-30); Chloride 100 mmol/L (98-107); Glucose 141 mg/dL (74-106); Magnesium 2.5 mg/dL (1.6-2.6); Potassium 5.3 mmol/L (3.5-5.1); Sodium 139 mmol/L (136-145)
[2023-09-10 15:59] LABS: Albumin 3.9 g/dL (3.2-4.8); Bilirubin, Total 1.1 mg/dL (0.2-1.0); Total Protein 6.3 g/dL (5.7-8.2)
[2023-09-10 16:17] LABS: Aspartate Aminotransferase 27 U/L (13-40)
[2023-09-10] MEDS ORDERED: VANCOMYCIN PER PHARMACY 1,000 MG IV SCH (16:45)
[2023-09-10] MEDS ORDERED: PANTOPRAZOLE 40 MG/10 ML VIAL INJ IV ONE (16:45)
[2023-09-10] MEDS ORDERED: IPRATROPIUM BROM 0.5 MG/2.5ML INH SOL NEB ONE (16:45)
[2023-09-10] MEDS ORDERED: SODIUM CHLORIDE 0.9% 500 ML IVB ONE (16:45)
[2023-09-10] MEDS ORDERED: ALBUMIN 25% 100 ML IV ONE ×2 (16:45→18:45)
[2023-09-10] MEDS ORDERED: ONDANSETRON HCL 4 MG/2 ML VIAL IV ONE (16:45)
[2023-09-10] MEDS ORDERED: ALBUTEROL SULF 2.5 MG/0.5ML(0.5%) NEB SOLN NEB ONE (16:45)
[2023-09-10] MEDS ORDERED: ACETAMINOPHEN 325 MG TAB PO ONE (16:45)
[2023-09-10] MEDS ORDERED: VANCOMYCIN 1GM/250ML 250 ML IV ONE (17:00)
[2023-09-10] MEDS ORDERED: PIPERACILLIN-TAZOB 3.375GM 100 ML IV ONE (17:00)
[2023-09-10 17:06] LABS: Base Excess 5.1 mmol/L (-2.0-2.0)
[2023-09-10] MEDS: VANCOMYCIN 1GM/250ML 250 ML IV ONE ×2 (18:02→20:13)
[2023-09-10] MEDS ORDERED: SODIUM CHLORIDE 0.9% 500 ML IV ONE (18:45)
[2023-09-10 18:57] LABS: Lactic Acid w/Reflex 4.1 mmol/L (0.4-2.0)
[2023-09-10 18:59] LABS: Blood Alcohol < 3.0 mg/dL (<10)
[2023-09-10 19:00] LABS: Magnesium 2.5 mg/dL (1.6-2.6)
[2023-09-10 19:25] VITALS: PULSE 76; RESP 19; O2SAT 95
[2023-09-10] MEDS ORDERED: ONDANSETRON HCL 4 MG/2 ML VIAL IV PRN (21:00)
[2023-09-10] MEDS ORDERED: SODIUM CHLORIDE 0.9% 1,000 ML IV ONE ×2 (21:00→22:15)
[2023-09-10] MEDS ORDERED: NITROGLYCERIN 0.4 MG SL TAB SL PRN (22:15)
[2023-09-10] MEDS ORDERED: DOCUSATE SOD 100 MG CAP PO PRN (22:15)
[2023-09-10] MEDS ORDERED: MORPHINE SULFATE INJ 2 MG/ml SYRG IV PRN (22:15)
[2023-09-10 22:50] LABS: Chloride 106 mmol/L (98-107); Potassium 4.5 mmol/L (3.5-5.1); Sodium 140 mmol/L (136-145)
[2023-09-10 22:51] LABS: Anion Gap 6 (5-15); Carbon Dioxide 28 mmol/L (20-30)
[2023-09-10 22:52] LABS: Calcium 8.1 mg/dL (8.7-10.4)
[2023-09-10 22:56] LABS: Glucose 131 mg/dL (74-106)
[2023-09-10 22:57] LABS: BUN/Creatinine Ratio 23.4 (10.0-20.0)
[2023-09-10 22:58] LABS: Blood Urea Nitrogen 46 mg/dL (9-23)
[2023-09-10] MEDS: PIPERACILLIN-TAZOB 3.375GM 100 ML IV SCH (23:22)
[2023-09-10 23:56] LABS: Urine Bacteria NONE SEEN /hpf (None Seen); Urine Blood Negative /uL (Negative); Urine Clarity Clear (Clear); Urine Color Yellow (Yellow); Urine Hyaline Cast FEW /lpf (0 - 2); Urine Protein, UAD TRACE (Negative); Urine Specific Gravity 1.017 (1.001-1.035); Urine Urobilinogen Normal (Negative); Urine WBC 1 /hpf (0 - 3)
[2023-09-11] VITALS (26 sets, daily range): BP systolic 85–117; BP diastolic 39–79; PULSE 68–82; RESP 12–23; TEMP 97.9–98.3; O2SAT 88–98
[2023-09-11 00:07] LABS: Amphetamine Screen, Urine Neg (NEGATIVE); Barbiturate Scree,Urine Neg (NEGATIVE); Benzodiazephine Screen, Urine Neg (NEGATIVE); Cannabinoid Screen, Urine Neg (NEGATIVE); Cocaine Screen, Urine Neg (NEGATIVE); Opiate Scree,Urine Neg (NEGATIVE); Phencyclidine Screen, Urine Neg (NEGATIVE)
[2023-09-11] MEDS ORDERED: NOREPINEPHRINE 8 MG/250ML KIT 250 ML IV ONE (00:54)
[2023-09-11] MEDS: NOREPINEPHRINE 8 MG/250ML KIT 250 ML IV SCH (01:11)
[2023-09-11 04:50] LABS: Basophils # (auto) 0.1 10 ^3/uL (0-0.2); Basophils % (auto) 0.5 % (0.0-2.0); Eosinophils # (auto) 0.2 10 ^3/uL (0-0.8); Eosinophils % (auto) 0.9 % (0.0-7.0); Hematocrit 49.2 % (41.0-53.0); Hemoglobin 15.4 g/dL (13.5-17.5); Lymphocytes # (auto) 2.2 10 ^3/uL (0.4-5.4); Lymphocytes % (auto) 9.9 % (10.0-50.0); Mean Corpuscular Hemoglobin 28.3 pg (28.0-32.0); Mean Corpuscular Hgb Conc. 31.3 g/dL (32.0-36.0); Mean Corpuscular Volume 90.6 fL (80.0-100.0); Monocytes # (auto) 1.1 10 ^3/uL (0-1.3); Neutrophils # (auto) 18.3 10 ^3/uL (1.6-8.6); Neutrophils % (auto) 83.7 % (37.0-80.0); Nucleated Red Blood Cells % 0.1 %; Red Blood Cells 5.43 10^6/uL (4.5-5.90); Red Cell Distribution Width 18.2 % (11.8-14.3); White Blood Cell 21.9 10^3/uL (4.4-10.8)
[2023-09-11 05:00] LABS: Chloride 107 mmol/L (98-107); Potassium 5.1 mmol/L (3.5-5.1); Sodium 141 mmol/L (136-145)
[2023-09-11 05:01] LABS: Anion Gap 6 (5-15); Calcium 8.1 mg/dL (8.7-10.4); Carbon Dioxide 28 mmol/L (20-30)
[2023-09-11 05:06] LABS: BUN/Creatinine Ratio 31.6 (10.0-20.0); Glucose 131 mg/dL (74-106)
[2023-09-11 05:17] LABS: Blood Urea Nitrogen 59 mg/dL (9-23)
[2023-09-11] MEDS: PIPERACILLIN-TAZOB 3.375GM 100 ML IV SCH (06:26)
[2023-09-11] MEDS: KETOCONAZOLE 2 % TOPICAL CREAM 15GM TOP SCH ×2 (10:00→22:17)
[2023-09-11] MEDS ORDERED: VANCOMYCIN 1GM/250ML 250 ML IV ONE (10:00)
[2023-09-11] MEDS: CEFEPIME 2GM/50ML NS 50 ML IV SCH ×2 (11:20→22:55)
[2023-09-12] VITALS (82 sets, daily range): BP systolic 87–122; BP diastolic 32–81; PULSE 59–87; RESP 10–23; TEMP 97.9–98.3; O2SAT 82–100
[2023-09-12] MEDS: NOREPINEPHRINE 8 MG/250ML KIT 250 ML IV SCH (01:00)
[2023-09-12 04:45] LABS: Basophils # (auto) 0 10 ^3/uL (0-0.2); Basophils % (auto) 0.1 % (0.0-2.0); Eosinophils # (auto) 0.3 10 ^3/uL (0-0.8); Hemoglobin 15.3 g/dL (13.5-17.5); Lymphocytes # (auto) 1.3 10 ^3/uL (0.4-5.4); Lymphocytes % (auto) 8.6 % (10.0-50.0)
[2023-09-12 04:47] LABS: Eosinophils % (auto) 2.1 % (0.0-7.0); Hematocrit 48.7 % (41.0-53.0); Mean Corpuscular Hemoglobin 28.2 pg (28.0-32.0); Mean Corpuscular Hgb Conc. 31.4 g/dL (32.0-36.0); Mean Corpuscular Volume 89.8 fL (80.0-100.0); Monocytes % (auto) 6.5 % (0.0-12.0); Neutrophils # (auto) 12.4 10 ^3/uL (1.6-8.6); Neutrophils % (auto) 82.7 % (37.0-80.0); Nucleated Red Blood Cells % 0.1 %; Red Blood Cells 5.42 10^6/uL (4.5-5.90); White Blood Cell 15.1 10^3/uL (4.4-10.8)
[2023-09-12 05:09] LABS: Chloride 109 mmol/L (98-107); Potassium 4.9 mmol/L (3.5-5.1); Sodium 139 mmol/L (136-145)
[2023-09-12 05:10] LABS: Anion Gap 5 (5-15); Carbon Dioxide 25 mmol/L (20-30)
[2023-09-12 05:11] LABS: Calcium 8.8 mg/dL (8.7-10.4)
[2023-09-12 05:16] LABS: BUN/Creatinine Ratio 15.6 (10.0-20.0); Glucose 125 mg/dL (74-106)
[2023-09-12 05:36] LABS: Blood Urea Nitrogen 23 mg/dL (9-23)
[2023-09-12 08:16] LABS: Platelet Estimate Decreased
[2023-09-12] MEDS ORDERED: ALBUTEROL SULF 2.5 MG/0.5ML(0.5%) NEB SOLN NEB PRN (09:30)
[2023-09-12] MEDS: KETOCONAZOLE 2 % TOPICAL CREAM 15GM TOP SCH ×2 (10:36→22:04)
[2023-09-12] MEDS: VANCOMYCIN 1GM/250ML 250 ML IV SCH (10:36)
[2023-09-12] MEDS ORDERED: ALBUTEROL INHALER IN PRN (11:15)
[2023-09-12] MEDS ORDERED: ASPI1TAB20 PO (11:16)
[2023-09-12] MEDS ORDERED: CLOP75TA28 PO (11:16)
[2023-09-12] MEDS ORDERED: ALBU108A5 IN (11:19)
[2023-09-12] MEDS ORDERED: FLUT0.05 NAS (11:21)
[2023-09-12] MEDS ORDERED: FLUT250M2 INH (11:21)
[2023-09-12] MEDS ORDERED: ALBUAER3 IN (11:25)
[2023-09-12] MEDS: CEFEPIME 2GM/50ML NS 50 ML IV SCH (11:49)
[2023-09-12 14:57] LABS: Basophils # (auto) 0.1 10 ^3/uL (0-0.2); Eosinophils # (auto) 0.1 10 ^3/uL (0-0.8); Mean Corpuscular Hemoglobin 28.2 pg (28.0-32.0); Mean Corpuscular Hgb Conc. 32.2 g/dL (32.0-36.0); Nucleated Red Blood Cells % 0.2 %
[2023-09-12 14:59] LABS: Basophils % (auto) 0.5 % (0.0-2.0); Eosinophils % (auto) 0.9 % (0.0-7.0); Hematocrit 48.4 % (41.0-53.0); Hemoglobin 15.6 g/dL (13.5-17.5); Lymphocytes # (auto) 1.1 10 ^3/uL (0.4-5.4); Lymphocytes % (auto) 8.8 % (10.0-50.0); Mean Corpuscular Volume 87.4 fL (80.0-100.0); Monocytes # (auto) 0.8 10 ^3/uL (0-1.3); Monocytes % (auto) 5.8 % (0.0-12.0); Neutrophils # (auto) 10.9 10 ^3/uL (1.6-8.6); Red Blood Cells 5.54 10^6/uL (4.5-5.90)
[2023-09-12 16:34] LABS: Platelet Estimate Decreased
[2023-09-12] MEDS: FLUTICASONE SALMETEROL IN SCH (22:03)
[2023-09-12] MEDS: ATORVASTATIN 20 MG TAB PO SCH (22:16)
[2023-09-12 22:36] LABS: INR 1.19 (0.9-1.15); Prothrombin Time 12.4 sec (9.3-11.8)
[2023-09-13] VITALS (35 sets, daily range): BP systolic 97–136; BP diastolic 47–85; PULSE 61–95; RESP 7–29; TEMP 97.7–98.3; O2SAT 84–100
[2023-09-13] MEDS: CEFEPIME 2GM/50ML NS 50 ML IV SCH ×3 (00:24→23:59)
[2023-09-13] MEDS: NOREPINEPHRINE 8 MG/250ML KIT 250 ML IV SCH (00:31)
[2023-09-13 05:48] LABS: Basophils # (auto) 0.1 10 ^3/uL (0-0.2); Eosinophils # (auto) 0.3 10 ^3/uL (0-0.8); Hemoglobin 15.2 g/dL (13.5-17.5); Lymphocytes # (auto) 1.5 10 ^3/uL (0.4-5.4); Lymphocytes % (auto) 11.4 % (10.0-50.0); Mean Corpuscular Hemoglobin 27.8 pg (28.0-32.0); Mean Corpuscular Hgb Conc. 32.3 g/dL (32.0-36.0); Monocytes # (auto) 0.9 10 ^3/uL (0-1.3); Monocytes % (auto) 6.9 % (0.0-12.0); Neutrophils # (auto) 10.3 10 ^3/uL (1.6-8.6); Neutrophils % (auto) 78.7 % (37.0-80.0); Nucleated Red Blood Cells % 0.3 %; Red Blood Cells 5.47 10^6/uL (4.5-5.90); Red Cell Distribution Width 16.8 % (11.8-14.3); White Blood Cell 13.1 10^3/uL (4.4-10.8)
[2023-09-13 07:46] LABS: Alanine Aminotransferase 36 U/L (7-40); Albumin 3.5 g/dL (3.2-4.8); Alkaline Phosphatase 82 U/L (46-116); Anion Gap 2 (5-15); Aspartate Aminotransferase 29 U/L (13-40); BUN/Creatinine Ratio 15.9 (10.0-20.0); Bilirubin, Total 1.3 mg/dL (0.2-1.0); Blood Urea Nitrogen 22 mg/dL (9-23); Calcium 9.2 mg/dL (8.5-10.1); Carbon Dioxide 32 mmol/L (20-30); Chloride 106 mmol/L (98-107); Glucose 123 mg/dL (74-106); Sodium 140 mmol/L (136-145); Total Protein 5.7 g/dL (5.7-8.2)
[2023-09-13] MEDS ORDERED: DEXTROSE (50%) 50ML SYRG IV ONE (08:15)
[2023-09-13] MEDS ORDERED: ALBUTEROL SULF 2.5 MG/0.5ML(0.5%) NEB SOLN NEB ONE (08:15)
[2023-09-13] MEDS ORDERED: FUROSEMIDE 40 MG/4 ML VIAL IV ONE (08:15)
[2023-09-13] MEDS ORDERED: SODIUM BICARBONATE 8.4 % INJ 50ML VIAL IV ONE (08:15)
[2023-09-13] MEDS ORDERED: InsuLIN REG 1unit/0.01ml Soln (100units/ml) IV ONE (08:15)
[2023-09-13] MEDS ORDERED: CALCIUM GLUC 1,000mg/50ml-NS 50 ML IV ONE (08:15)
[2023-09-13] MEDS ORDERED: SODIUM ZIRCONIUM CYCL 10 GM PAK PO ONE (08:30)
[2023-09-13 11:00] LABS: Alanine Aminotransferase 40 U/L (7-40); Albumin 4.1 g/dL (3.2-4.8); Alkaline Phosphatase 92 U/L (46-116); Anion Gap 6 (5-15); Aspartate Aminotransferase 41 U/L (13-40); BUN/Creatinine Ratio 18.8 (10.0-20.0); Bilirubin, Total 1.7 mg/dL (0.2-1.0); Blood Urea Nitrogen 25 mg/dL (9-23); Calcium 9.5 mg/dL (8.5-10.1); Carbon Dioxide 32 mmol/L (20-30); Chloride 103 mmol/L (98-107); Glucose 88 mg/dL (74-106); Potassium 5.1 mmol/L (3.5-5.1); Sodium 141 mmol/L (136-145); Total Protein 6.7 g/dL (5.7-8.2)
[2023-09-13] MEDS: ASPirin 81 mg TAB PO SCH (11:07)
[2023-09-13] MEDS: KETOCONAZOLE 2 % TOPICAL CREAM 15GM TOP SCH ×2 (11:07→21:07)
[2023-09-13] MEDS: FLUTICASONE SALMETEROL IN SCH ×2 (11:07→20:58)
[2023-09-13] MEDS: VANCOMYCIN 1GM/250ML 250 ML IV SCH (11:35)
[2023-09-13] MEDS: ATORVASTATIN 20 MG TAB PO SCH (20:56)
[2023-09-14] MEDS: NOREPINEPHRINE 8 MG/250ML KIT 250 ML IV SCH (00:11)
[2023-09-14 05:57] LABS: Basophils # (auto) 0 10 ^3/uL (0-0.2); Basophils % (auto) 0.3 % (0.0-2.0); Eosinophils # (auto) 0.2 10 ^3/uL (0-0.8); Hematocrit 46.5 % (41.0-53.0); Hemoglobin 15.1 g/dL (13.5-17.5); Lymphocytes # (auto) 1.3 10 ^3/uL (0.4-5.4); Lymphocytes % (auto) 12.8 % (10.0-50.0); Mean Corpuscular Hemoglobin 27.8 pg (28.0-32.0); Mean Corpuscular Hgb Conc. 32.4 g/dL (32.0-36.0); Mean Corpuscular Volume 85.8 fL (80.0-100.0); Monocytes # (auto) 0.6 10 ^3/uL (0-1.3); Monocytes % (auto) 5.5 % (0.0-12.0); Neutrophils # (auto) 8.1 10 ^3/uL (1.6-8.6); Neutrophils % (auto) 79.4 % (37.0-80.0); Nucleated Red Blood Cells % 0.3 %; Red Blood Cells 5.42 10^6/uL (4.5-5.90); Red Cell Distribution Width 17.1 % (11.8-14.3); White Blood Cell 10.3 10^3/uL (4.4-10.8)
[2023-09-14 06:10] LABS: Alanine Aminotransferase 28 U/L (7-40); Alkaline Phosphatase 86 U/L (46-116); Anion Gap 5 (5-15); BUN/Creatinine Ratio 14.2 (10.0-20.0); Blood Urea Nitrogen 18 mg/dL (9-23); Calcium 9.1 mg/dL (8.7-10.4); Carbon Dioxide 32 mmol/L (20-30); Chloride 103 mmol/L (98-107); Potassium 4.4 mmol/L (3.5-5.1); Sodium 140 mmol/L (136-145)
[2023-09-14 06:11] LABS: Albumin 3.5 g/dL (3.2-4.8); Aspartate Aminotransferase 23 U/L (13-40)
[2023-09-14 06:12] LABS: Bilirubin, Total 1.1 mg/dL (0.2-1.0); Total Protein 5.8 g/dL (5.7-8.2)
[2023-09-14 07:35] LABS: Glucose 126 mg/dL (74-106)
[2023-09-14 08:05] VITALS: O2SAT 97
[2023-09-14 08:40] VITALS: BP 126/81; PULSE 75; RESP 20; TEMP 97.9; O2SAT 97
[2023-09-14] MEDS ORDERED: ENOXAPARIN SOD 40 MG/0.4 ML SYRINGE SC SCH (10:00)
[2023-09-14] MEDS: VANCOMYCIN 1GM/250ML 250 ML IV SCH (11:42)
[2023-09-14] MEDS: ASPirin 81 mg TAB PO SCH (11:42)
[2023-09-14] MEDS: CEFEPIME 2GM/50ML NS 50 ML IV SCH (12:00)
[2023-09-14 12:30] VITALS: BP 122/69; PULSE 82; RESP 20; TEMP 97.8; O2SAT 97
[2023-09-14] MEDS ORDERED: DOXY-448 PO (12:58)
[2023-09-14] MEDS ORDERED: KET2TP TOP (12:58)
[2023-09-14] MEDS ORDERED: FURO1TAB33 PO (13:00)
[2023-09-14] MEDS: KETOCONAZOLE 2 % TOPICAL CREAM 15GM TOP SCH (13:42)
[2023-09-14] MEDS: FLUTICASONE SALMETEROL IN SCH (13:42)
[2023-09-14 14:57] VITALS: BP 122/69; PULSE 82; RESP 20; TEMP 97.8; O2SAT 97
[2023-09-14 16:20] VITALS: BP 132/84; PULSE 65; RESP 20; TEMP 97.2; O2SAT 96
== END 2023-09-14 19:05 | disposition home or self-care (01) | DRG 871 ==
LOC: EDBD 15:06 → ER 15:06 → TELE 22:25 → OBSVTOIN 09-11 13:31 → ICU WEST 09-11 17:38 → TELE-CENTR 09-13 22:20
PROVIDERS: ADMIT Hospitalist; ATTEND Student in an Organized Health Care Education/Training Program
DX: A41.9 Sepsis, unspecified organism (principal); D65 Disseminated intravascular coagulation [defibrination syndrome]; J96.20 Acute and chronic respiratory failure, unspecified whether with hypoxia or hypercapnia; E87.20 Acidosis, unspecified; I13.0 Hypertensive heart and chronic kidney disease with heart failure and stage 1 through stage 4 chronic kidney disease, or unspecified chronic kidney disease; N17.9 Acute kidney failure, unspecified; N39.0 Urinary tract infection, site not specified; I50.20 Unspecified systolic (congestive) heart failure; E87.5 Hyperkalemia; I25.10 Atherosclerotic heart disease of native coronary artery without angina pectoris; E78.5 Hyperlipidemia, unspecified; I25.5 Ischemic cardiomyopathy; J43.9 Emphysema, unspecified; N18.32 Chronic kidney disease, stage 3b; G62.9 Polyneuropathy, unspecified; Z90.5 Acquired absence of kidney; Z99.81 Dependence on supplemental oxygen; Z63.4 Disappearance and death of family member; Z79.899 Other long term (current) drug therapy; Z86.79 Personal history of other diseases of the circulatory system; Z95.1 Presence of aortocoronary bypass graft; Z95.5 Presence of coronary angioplasty implant and graft; Z95.0 Presence of cardiac pacemaker; I25.2 Old myocardial infarction
CPT/HCPCS: 36415; 36600; 51702; 70450; 71045; 71250; 74176; 80048; 80053; 80202; 80307; 80320; 81001; 82805; 82962; 83605; 83735; 83880; 84484; 85025; 85379; 85384; 85610; 85730; 86141; 87040; 87081; 87086; 93005; 93970; 94640; 96361; 96365; 96366; 96367; 96368; 96375; 97163; 99291; C9113; G0378; J0692; J1815; J2405; J2543; P9047

== ENCOUNTER 2024-01-07 15:04 | Inpatient (IN) | payer OTHER ==
[2024-01-07] VITALS (9 sets, daily range): BP systolic 92–112; BP diastolic 61–64; PULSE 71–98; RESP 18–26; O2SAT 74–98
[~2024-01-07] VITALS: Ht 177.8 cm; Wt 78.1 kg
[~2024-01-07 15:04] MED LIST changes: -ASA PO; +ASPI1TAB20 PO; +CLOP75TA28 PO; +DOXY-448 PO; +FURO1TAB33 PO; -FURO40TA4 PO; +KET2TP TOP; -PLAVIX PO; -SPIR25TA8 PO
[2024-01-07] MEDS: methylPREDNISolone SOD SUCC 125 MG/2 ML VL ONE (15:32)
[2024-01-07] MEDS: methylPREDNISolone SOD SUCC 125 MG/2 ML VL IV ONE (15:33)
[2024-01-07 15:43] LABS: Base Excess -6.8 mmol/L (-2.0-2.0)
[2024-01-07 16:12] LABS: Basophils # (auto) 0.1 10 ^3/uL (0-0.2); Basophils % (auto) 0.6 % (0.0-2.0); Eosinophils # (auto) 0 10 ^3/uL (0-0.8); Eosinophils % (auto) 0.1 % (0.0-7.0); Hematocrit 49.3 % (41.0-53.0); Hemoglobin 15.8 g/dL (13.5-17.5); Lymphocytes # (auto) 3.2 10 ^3/uL (0.4-5.4); Mean Corpuscular Hemoglobin 29.1 pg (28.0-32.0); Mean Corpuscular Hgb Conc. 32.1 g/dL (32.0-36.0); Mean Corpuscular Volume 90.8 fL (80.0-100.0); Monocytes # (auto) 0.9 10 ^3/uL (0-1.3); Monocytes % (auto) 8.6 % (0.0-12.0); Neutrophils # (auto) 5.9 10 ^3/uL (1.6-8.6); Neutrophils % (auto) 58.7 % (37.0-80.0); Nucleated Red Blood Cells % 0.1 %; Red Blood Cells 5.43 10^6/uL (4.5-5.90); Red Cell Distribution Width 16.3 % (11.8-14.3); White Blood Cell 10.1 10^3/uL (4.4-10.8)
[2024-01-07 16:21] LABS: Alanine Aminotransferase 22 U/L (7-40); Albumin 4.6 g/dL (3.2-4.8); Alkaline Phosphatase 110 U/L (46-116); Anion Gap 12 (5-15); Aspartate Aminotransferase 33 U/L (13-40); BUN/Creatinine Ratio 12.2 (10.0-20.0); Bilirubin, Total 0.7 mg/dL (0.2-1.0); Blood Urea Nitrogen 28 mg/dL (9-23); Carbon Dioxide 21 mmol/L (20-30); Chloride 105 mmol/L (98-107); Glucose 172 mg/dL (74-106); Potassium 4.8 mmol/L (3.5-5.1); Sodium 138 mmol/L (136-145)
[2024-01-07 16:22] LABS: Total Protein 7.3 g/dL (5.7-8.2)
[2024-01-07 16:30] LABS: Lactic Acid w/Reflex 7.3 mmol/L (0.4-2.0)
[2024-01-07 16:42] LABS: Base Excess -4.3 mmol/L (-2.0-2.0)
[2024-01-07] MEDS ORDERED: NITROGLYCERIN 0.4 MG SL TAB SL PRN (18:30)
[2024-01-07] MEDS ORDERED: FUROSEMIDE 40 MG/4 ML VIAL IV SCH (18:30)
[2024-01-07] MEDS ORDERED: MORPHINE SULFATE INJ 2 MG/ml SYRG IV PRN (18:30)
[2024-01-07] MEDS: ALBUTEROL SULF 2.5 MG/0.5ML(0.5%) NEB SOLN NEB SCH (18:58)
[2024-01-07] MEDS: IPRATROPIUM BROM 0.5 MG/2.5ML INH SOL NEB SCH (18:58)
[2024-01-07 21:03] LABS: INR 1.18 (0.9-1.15); Partial Thromboplastin Time 27.1 SEC (24.5-34.5); Prothrombin Time 12.3 sec (9.3-11.8)
[2024-01-07] MEDS: SODIUM CHLORIDE 0.9% 1,000 ML IV SCH (21:32)
[2024-01-07] MEDS: HEPARIN SODIUM (PORCINE) 5000 UNITS/ML 1ML VIAL IV ONE (21:33)
[2024-01-07] MEDS: HEPARIN DRIP/D5W 100UNITS/ML 250 ML IV SCH (21:36)
[2024-01-07] MEDS: FUROSEMIDE 100 MG/10ML VIAL IV SCH (22:41)
[2024-01-07] MEDS: NOREPINEPHRINE 8 MG/250ML KIT 250 ML IV SCH (22:42)
[2024-01-08] VITALS (8 sets, daily range): BP systolic 91–150; BP diastolic 60–102; PULSE 60–108; RESP 16–23; O2SAT 90–96
[2024-01-08 06:00] LABS: Basophils # (auto) 0 10 ^3/uL (0-0.2); Basophils % (auto) 0.2 % (0.0-2.0); Eosinophils # (auto) 0 10 ^3/uL (0-0.8); Hematocrit 46.3 % (41.0-53.0); Hemoglobin 15.1 g/dL (13.5-17.5); Lymphocytes # (auto) 1.4 10 ^3/uL (0.4-5.4); Lymphocytes % (auto) 18.1 % (10.0-50.0); Mean Corpuscular Hemoglobin 29.4 pg (28.0-32.0); Mean Corpuscular Hgb Conc. 32.6 g/dL (32.0-36.0); Mean Corpuscular Volume 90.3 fL (80.0-100.0); Monocytes # (auto) 0.3 10 ^3/uL (0-1.3); Monocytes % (auto) 3.2 % (0.0-12.0); Neutrophils # (auto) 6.3 10 ^3/uL (1.6-8.6); Neutrophils % (auto) 78.5 % (37.0-80.0); Nucleated Red Blood Cells % 0.2 %; Red Blood Cells 5.13 10^6/uL (4.5-5.90); Red Cell Distribution Width 15.9 % (11.8-14.3)
[2024-01-08 06:06] LABS: Urine Amorphous Crystal FEW /hpf (None Seen); Urine Bacteria FEW /hpf (None Seen); Urine Blood Negative /uL (Negative); Urine Clarity Clear (Clear); Urine Color Colorless (Yellow); Urine Hyaline Cast FEW /lpf (0 - 2); Urine Protein, UAD TRACE (Negative); Urine Specific Gravity 1.011 (1.001-1.035); Urine Urobilinogen Normal (Negative); Urine WBC 2 /hpf (0 - 3)
[2024-01-08 06:15] LABS: INR 1.24 (0.9-1.15); Prothrombin Time 12.8 sec (9.3-11.8)
[2024-01-08 06:22] LABS: Partial Thromboplastin Time 109.7 SEC (24.5-34.5)
[2024-01-08 06:38] LABS: Alanine Aminotransferase 24 U/L (7-40); Albumin 4.3 g/dL (3.2-4.8); Alkaline Phosphatase 91 U/L (46-116); Anion Gap 8 (5-15); Aspartate Aminotransferase 51 U/L (13-40); BUN/Creatinine Ratio 11.3 (10.0-20.0); Bilirubin, Total 0.5 mg/dL (0.2-1.0); Blood Urea Nitrogen 23 mg/dL (9-23); Calcium 9.5 mg/dL (8.7-10.4); Carbon Dioxide 24 mmol/L (20-30); Chloride 105 mmol/L (98-107); Glucose 195 mg/dL (74-106); Potassium 4.7 mmol/L (3.5-5.1); Sodium 137 mmol/L (136-145); Total Protein 7.1 g/dL (5.7-8.2)
[2024-01-08] MEDS: HEPARIN DRIP/D5W 100UNITS/ML 250 ML IV SCH ×2 (07:30→21:15)
[2024-01-08 14:03] LABS: INR 1.17 (0.9-1.15); Partial Thromboplastin Time 53.1 SEC (24.5-34.5); Prothrombin Time 12.2 sec (9.3-11.8)
[2024-01-08] MEDS: cefTRIAXone 1GM/50ML D5W 50 ML IV SCH (15:41)
[2024-01-08] MEDS: AZITHROMYCIN 250 MG TAB PO SCH (15:41)
[2024-01-08] MEDS: methylPREDNISolone SOD SUCC 125 MG/2 ML VL IV SCH (15:41)
[2024-01-08] MEDS: ACETAMINOPHEN 325 MG TAB PO PRN (20:05)
[2024-01-08 20:07] LABS: INR 1.15 (0.9-1.15); Partial Thromboplastin Time 42.6 SEC (24.5-34.5)
[2024-01-09] VITALS (13 sets, daily range): BP systolic 91–124; BP diastolic 56–78; PULSE 77–104; RESP 20–29; O2SAT 90–98
[2024-01-09 04:43] LABS: Basophils # (auto) 0 10 ^3/uL (0-0.2); Basophils % (auto) 0.2 % (0.0-2.0); Eosinophils # (auto) 0 10 ^3/uL (0-0.8); Hematocrit 48.9 % (41.0-53.0); Hemoglobin 15.9 g/dL (13.5-17.5); Lymphocytes # (auto) 2.1 10 ^3/uL (0.4-5.4); Lymphocytes % (auto) 15.9 % (10.0-50.0); Mean Corpuscular Hemoglobin 29.2 pg (28.0-32.0); Mean Corpuscular Hgb Conc. 32.5 g/dL (32.0-36.0); Mean Corpuscular Volume 89.8 fL (80.0-100.0); Monocytes # (auto) 1.1 10 ^3/uL (0-1.3); Monocytes % (auto) 8.4 % (0.0-12.0); Neutrophils # (auto) 10.1 10 ^3/uL (1.6-8.6); Neutrophils % (auto) 75.5 % (37.0-80.0); Nucleated Red Blood Cells % 0.1 %; Red Blood Cells 5.45 10^6/uL (4.5-5.90); Red Cell Distribution Width 16.5 % (11.8-14.3); White Blood Cell 13.3 10^3/uL (4.4-10.8)
[2024-01-09 04:56] LABS: Chloride 102 mmol/L (98-107); Potassium 3.8 mmol/L (3.5-5.1); Sodium 138 mmol/L (136-145)
[2024-01-09 04:57] LABS: Anion Gap 8 (5-15); Calcium 9.1 mg/dL (8.7-10.4); Carbon Dioxide 28 mmol/L (20-30)
[2024-01-09 05:02] LABS: BUN/Creatinine Ratio 16.9 (10.0-20.0); Glucose 161 mg/dL (74-106)
[2024-01-09 05:05] LABS: Blood Urea Nitrogen 33 mg/dL (9-23)
[2024-01-09 05:13] LABS: INR 1.15 (0.9-1.15); Partial Thromboplastin Time 58.1 SEC (24.5-34.5)
[2024-01-09] MEDS: ACETAMINOPHEN 325 MG TAB PO PRN (08:16)
[2024-01-09 11:23] LABS: COVID19 ANTIGEN SOFIA FIA NEGATIVE (NEGATIVE)
[2024-01-09 11:27] LABS: Rapid Influenza B Negative (Negative)
[2024-01-09 11:28] LABS: Rapid Influenza A Positive (Negative)
[2024-01-09 11:49] LABS: INR 1.19 (0.9-1.15); Partial Thromboplastin Time 65.8 SEC (24.5-34.5); Prothrombin Time 12.4 sec (9.3-11.8)
[2024-01-09] MEDS ORDERED: ALBU108A5 INH (13:52)
[2024-01-09 17:12] LABS: INR 1.19 (0.9-1.15); Prothrombin Time 12.4 sec (9.3-11.8)
[2024-01-09 17:25] LABS: Partial Thromboplastin Time 91.1 SEC (24.5-34.5)
[2024-01-09] MEDS: HEPARIN DRIP/D5W 100UNITS/ML 250 ML IV SCH (18:39)
[2024-01-09] MEDS: OSELTAMIVIR 30 MG CAP PO SCH (21:55)
[2024-01-10] VITALS (16 sets, daily range): BP systolic 107–123; BP diastolic 70–73; PULSE 62–90; RESP 18–22; O2SAT 90–94
[2024-01-10 01:05] LABS: INR 1.12 (0.9-1.15); Partial Thromboplastin Time 45.4 SEC (24.5-34.5); Prothrombin Time 11.7 sec (9.3-11.8)
[2024-01-10] MEDS: HEPARIN DRIP/D5W 100UNITS/ML 250 ML IV SCH ×2 (01:42→09:06)
[2024-01-10 08:32] LABS: INR 1.1 (0.9-1.15); Partial Thromboplastin Time 49.3 SEC (24.5-34.5); Prothrombin Time 11.5 sec (9.3-11.8)
[2024-01-10 10:42] LABS: Basophils # (auto) 0 10 ^3/uL (0-0.2); Basophils % (auto) 0.1 % (0.0-2.0); Eosinophils # (auto) 0 10 ^3/uL (0-0.8); Hematocrit 49.2 % (41.0-53.0); Hemoglobin 16.2 g/dL (13.5-17.5); Lymphocytes # (auto) 0.9 10 ^3/uL (0.4-5.4); Lymphocytes % (auto) 6.5 % (10.0-50.0); Mean Corpuscular Hemoglobin 29.2 pg (28.0-32.0); Mean Corpuscular Hgb Conc. 32.9 g/dL (32.0-36.0); Mean Corpuscular Volume 88.8 fL (80.0-100.0); Monocytes # (auto) 0.5 10 ^3/uL (0-1.3); Monocytes % (auto) 3.4 % (0.0-12.0); Neutrophils # (auto) 12.8 10 ^3/uL (1.6-8.6); Red Blood Cells 5.54 10^6/uL (4.5-5.90); White Blood Cell 14.2 10^3/uL (4.4-10.8)
[2024-01-10 10:51] LABS: Alanine Aminotransferase 26 U/L (7-40); Albumin 4.3 g/dL (3.2-4.8); Alkaline Phosphatase 90 U/L (46-116); Anion Gap 6 (5-15); Aspartate Aminotransferase 50 U/L (13-40); Bilirubin, Total 0.5 mg/dL (0.2-1.0); Blood Urea Nitrogen 35 mg/dL (9-23); Calcium 9.6 mg/dL (8.5-10.1); Carbon Dioxide 30 mmol/L (20-30); Chloride 105 mmol/L (98-107); Glucose 163 mg/dL (74-106); Potassium 3.9 mmol/L (3.5-5.1); Sodium 141 mmol/L (136-145)
[2024-01-11] VITALS (14 sets, daily range): BP systolic 115–145; BP diastolic 56–88; PULSE 69–102; RESP 13–24; O2SAT 91–98
[2024-01-11 06:33] LABS: Basophils # (auto) 0 10 ^3/uL (0-0.2); Basophils % (auto) 0.1 % (0.0-2.0); Eosinophils # (auto) 0 10 ^3/uL (0-0.8); Hematocrit 49.6 % (41.0-53.0); Hemoglobin 16.2 g/dL (13.5-17.5); Lymphocytes # (auto) 1.1 10 ^3/uL (0.4-5.4); Lymphocytes % (auto) 7.9 % (10.0-50.0); Mean Corpuscular Hgb Conc. 32.7 g/dL (32.0-36.0); Mean Corpuscular Volume 88.7 fL (80.0-100.0); Monocytes # (auto) 0.5 10 ^3/uL (0-1.3); Monocytes % (auto) 3.4 % (0.0-12.0); Neutrophils # (auto) 12.5 10 ^3/uL (1.6-8.6); Neutrophils % (auto) 88.6 % (37.0-80.0); Nucleated Red Blood Cells % 0.1 %; Red Blood Cells 5.59 10^6/uL (4.5-5.90); Red Cell Distribution Width 16.3 % (11.8-14.3); White Blood Cell 14.1 10^3/uL (4.4-10.8)
[2024-01-11 06:44] LABS: Anion Gap 10 (5-15); Calcium 9.6 mg/dL (8.5-10.1); Carbon Dioxide 29 mmol/L (20-30); Chloride 97 mmol/L (98-107); Potassium 3.5 mmol/L (3.5-5.1); Sodium 136 mmol/L (136-145)
[2024-01-11 06:50] LABS: Blood Urea Nitrogen 40 mg/dL (9-23); Glucose 206 mg/dL (74-106)
[2024-01-11 10:44] LABS: Base Excess 6.5 mmol/L (-2.0-2.0)
[2024-01-11 16:07] LABS: Base Excess 4.9 mmol/L (-2.0-2.0)
[2024-01-12] VITALS (10 sets, daily range): BP systolic 135–138; BP diastolic 80–85; PULSE 72–102; RESP 15–22; O2SAT 88–98
[2024-01-12 03:56] LABS: Base Excess 5.4 mmol/L (-2.0-2.0)
[2024-01-12 05:57] LABS: Basophils # (auto) 0 10 ^3/uL (0-0.2); Basophils % (auto) 0.2 % (0.0-2.0); Eosinophils # (auto) 0 10 ^3/uL (0-0.8); Hematocrit 46.5 % (41.0-53.0); Hemoglobin 15.3 g/dL (13.5-17.5); Lymphocytes # (auto) 0.8 10 ^3/uL (0.4-5.4); Lymphocytes % (auto) 7.5 % (10.0-50.0); Mean Corpuscular Hemoglobin 28.9 pg (28.0-32.0); Mean Corpuscular Hgb Conc. 32.8 g/dL (32.0-36.0); Monocytes # (auto) 0.5 10 ^3/uL (0-1.3); Monocytes % (auto) 4.8 % (0.0-12.0); Neutrophils # (auto) 9.9 10 ^3/uL (1.6-8.6); Neutrophils % (auto) 87.5 % (37.0-80.0); Nucleated Red Blood Cells % 0.2 %; Red Blood Cells 5.28 10^6/uL (4.5-5.90); Red Cell Distribution Width 15.9 % (11.8-14.3); White Blood Cell 11.3 10^3/uL (4.4-10.8)
[2024-01-12 06:11] LABS: Anion Gap 5 (5-15); Carbon Dioxide 33 mmol/L (20-30); Chloride 101 mmol/L (98-107); Potassium 3.9 mmol/L (3.5-5.1); Sodium 139 mmol/L (136-145)
[2024-01-12 06:12] LABS: Calcium 9.3 mg/dL (8.7-10.4)
[2024-01-12 06:17] LABS: Glucose 264 mg/dL (74-106)
[2024-01-12 06:19] LABS: Blood Urea Nitrogen 55 mg/dL (9-23)
[2024-01-12] MEDS ORDERED: FUROSEMIDE 100 MG/10ML VIAL IV SCH (18:00)
[2024-01-12] MEDS: FUROSEMIDE 20 MG/2 ML VIAL IV SCH (18:01)
[2024-01-13] VITALS (26 sets, daily range): BP systolic 128–163; BP diastolic 77–100; PULSE 60–99; RESP 13–25; TEMP 96.4–97.9; O2SAT 88–99
[2024-01-13] MEDS: ALBUTEROL SULF 2.5 MG/0.5ML(0.5%) NEB SOLN ONE ×2 (00:26→06:29)
[2024-01-13] MEDS: IPRATROPIUM BROM 0.5 MG/2.5ML INH SOL ONE ×2 (00:26→06:29)
[2024-01-13] MEDS: FUROSEMIDE 20 MG/2 ML VIAL ONE (05:27)
[2024-01-13 06:06] LABS: Basophils # (auto) 0 10 ^3/uL (0-0.2); Basophils % (auto) 0.1 % (0.0-2.0); Eosinophils # (auto) 0 10 ^3/uL (0-0.8); Hematocrit 47.7 % (41.0-53.0); Hemoglobin 15.6 g/dL (13.5-17.5); Lymphocytes # (auto) 0.9 10 ^3/uL (0.4-5.4); Mean Corpuscular Hemoglobin 29.4 pg (28.0-32.0); Mean Corpuscular Hgb Conc. 32.8 g/dL (32.0-36.0); Mean Corpuscular Volume 89.5 fL (80.0-100.0); Monocytes # (auto) 0.8 10 ^3/uL (0-1.3); Monocytes % (auto) 7.8 % (0.0-12.0); Neutrophils # (auto) 8.1 10 ^3/uL (1.6-8.6); Neutrophils % (auto) 83.1 % (37.0-80.0); Red Blood Cells 5.33 10^6/uL (4.5-5.90); Red Cell Distribution Width 15.6 % (11.8-14.3); White Blood Cell 9.8 10^3/uL (4.4-10.8)
[2024-01-13 06:16] LABS: Anion Gap 9 (5-15); Carbon Dioxide 30 mmol/L (20-30); Chloride 101 mmol/L (98-107); Potassium 3.6 mmol/L (3.5-5.1); Sodium 140 mmol/L (136-145)
[2024-01-13 06:17] LABS: Calcium 9.5 mg/dL (8.7-10.4)
[2024-01-13 06:22] LABS: BUN/Creatinine Ratio 34.2 (10.0-20.0); Blood Urea Nitrogen 55 mg/dL (9-23); Glucose 265 mg/dL (74-106)
[2024-01-14] VITALS (31 sets, daily range): BP systolic 129–165; BP diastolic 76–105; PULSE 66–102; RESP 15–25; TEMP 97.4–98; O2SAT 91–99
[2024-01-14 05:37] LABS: Anion Gap 7 (5-15); Calcium 9.4 mg/dL (8.7-10.4); Carbon Dioxide 30 mmol/L (20-30); Chloride 98 mmol/L (98-107)
[2024-01-14 05:40] LABS: Hematocrit 48.6 % (41.0-53.0); Hemoglobin 15.7 g/dL (13.5-17.5); Mean Corpuscular Hemoglobin 28.8 pg (28.0-32.0); Mean Corpuscular Hgb Conc. 32.3 g/dL (32.0-36.0); Mean Corpuscular Volume 88.9 fL (80.0-100.0); Red Blood Cells 5.47 10^6/uL (4.5-5.90); Red Cell Distribution Width 15.8 % (11.8-14.3); White Blood Cell 11.9 10^3/uL (4.4-10.8)
[2024-01-14 05:43] LABS: BUN/Creatinine Ratio 28.5 (10.0-20.0); Glucose 311 mg/dL (74-106)
[2024-01-14 05:49] LABS: Blood Urea Nitrogen 45 mg/dL (9-23); Sodium 135 mmol/L (136-145)
[2024-01-14 06:00] LABS: Basophils % (manual) 0 (0.0-2.0); Blast Cells 0; Eosinophils % (manual) 0 (0-7); Promyelocytes % 0; Reactive Lymphocytes 0
[2024-01-14 12:11] LABS: Band Neutrophils % (manual) 8; Lymphocytes % (manual) 4 (10.0-50.0); Metamyelocytes % 1; Monocytes % (manual) 5 (0-12); Myelocytes % 3; Platelet Estimate Adequate
[2024-01-15] VITALS (27 sets, daily range): BP systolic 128–166; BP diastolic 78–104; PULSE 75–96; RESP 14–28; TEMP 97.6–98.6; O2SAT 89–99
[2024-01-15 06:02] LABS: Hematocrit 46.7 % (41.0-53.0); Hemoglobin 15.3 g/dL (13.5-17.5); Mean Corpuscular Hemoglobin 29.2 pg (28.0-32.0); Mean Corpuscular Hgb Conc. 32.8 g/dL (32.0-36.0); Mean Corpuscular Volume 89.1 fL (80.0-100.0); Red Blood Cells 5.24 10^6/uL (4.5-5.90); Red Cell Distribution Width 15.6 % (11.8-14.3); White Blood Cell 11.7 10^3/uL (4.4-10.8)
[2024-01-15 06:07] LABS: Basophils % (manual) 0 (0.0-2.0); Blast Cells 0; Eosinophils % (manual) 0 (0-7); Metamyelocytes % 0; Reactive Lymphocytes 0
[2024-01-15 06:12] LABS: Chloride 101 mmol/L (98-107); Potassium 4.6 mmol/L (3.5-5.1); Sodium 140 mmol/L (136-145)
[2024-01-15 06:13] LABS: Anion Gap 7 (5-15); Calcium 9.3 mg/dL (8.5-10.1); Carbon Dioxide 32 mmol/L (20-30)
[2024-01-15 06:18] LABS: BUN/Creatinine Ratio 31.3 (10.0-20.0); Blood Urea Nitrogen 47 mg/dL (9-23); Glucose 305 mg/dL (74-106)
[2024-01-15 07:01] LABS: Base Excess 6.8 mmol/L (-2.0-2.0)
[2024-01-15 09:40] LABS: Band Neutrophils % (manual) 2; Lymphocytes % (manual) 6 (10.0-50.0); Monocytes % (manual) 4 (0-12); Myelocytes % 1; Promyelocytes % 1
[2024-01-15 09:41] LABS: Platelet Estimate Adequate
[2024-01-15 17:36] LABS: Creatinine, Urine 39.03 mg/dL (30.0-125.0)
[2024-01-15] MEDS: hydrALAZINE HCL 20 MG/ML VL IV PRN (18:30)
[2024-01-16] VITALS (33 sets, daily range): BP systolic 127–179; BP diastolic 77–121; PULSE 76–110; RESP 15–25; TEMP 97.5–98.2; O2SAT 89–100
[2024-01-16 05:09] LABS: Hematocrit 48.3 % (41.0-53.0); Hemoglobin 15.8 g/dL (13.5-17.5); Mean Corpuscular Hemoglobin 28.9 pg (28.0-32.0); Mean Corpuscular Hgb Conc. 32.7 g/dL (32.0-36.0); Mean Corpuscular Volume 88.3 fL (80.0-100.0); Red Blood Cells 5.47 10^6/uL (4.5-5.90); Red Cell Distribution Width 15.9 % (11.8-14.3); White Blood Cell 12.8 10^3/uL (4.4-10.8)
[2024-01-16 05:17] LABS: Chloride 99 mmol/L (98-107); Potassium 4.8 mmol/L (3.5-5.1); Sodium 138 mmol/L (136-145)
[2024-01-16 05:18] LABS: Anion Gap 8 (5-15); Calcium 9.6 mg/dL (8.5-10.1); Carbon Dioxide 31 mmol/L (20-30)
[2024-01-16 05:23] LABS: BUN/Creatinine Ratio 33.3 (10.0-20.0); Blood Urea Nitrogen 47 mg/dL (9-23); Glucose 289 mg/dL (74-106)
[2024-01-16 05:30] LABS: Basophils % (manual) 0 (0.0-2.0); Blast Cells 0; Eosinophils % (manual) 0 (0-7); Myelocytes % 0; Promyelocytes % 0; Reactive Lymphocytes 0
[2024-01-16 08:57] LABS: Band Neutrophils % (manual) 6; Lymphocytes % (manual) 12 (10.0-50.0); Metamyelocytes % 1; Monocytes % (manual) 6 (0-12); Platelet Estimate Adequate
[2024-01-16 09:26] LABS: Magnesium 2.6 mg/dL (1.6-2.6)
[2024-01-16 09:28] LABS: Phosphorus 3.9 mg/dL (2.4-5.1)
[2024-01-16] MEDS: NYSTATIN (MOUTH-THROAT) 500,000 UNITS/5 ML SUSP MT ONE (11:17)
[2024-01-16] MEDS: NYSTATIN (MOUTH-THROAT) 500,000 UNITS/5 ML SUSP MT SCH (14:29)
[2024-01-17] VITALS (27 sets, daily range): BP systolic 123–170; BP diastolic 80–101; PULSE 78–105; RESP 12–21; TEMP 97.4–98.5; O2SAT 91–100
[2024-01-17 05:58] LABS: Hematocrit 48.3 % (41.0-53.0); Hemoglobin 15.9 g/dL (13.5-17.5); Mean Corpuscular Hemoglobin 28.9 pg (28.0-32.0); Mean Corpuscular Hgb Conc. 32.8 g/dL (32.0-36.0); Red Blood Cells 5.49 10^6/uL (4.5-5.90); Red Cell Distribution Width 15.7 % (11.8-14.3); White Blood Cell 15.9 10^3/uL (4.4-10.8)
[2024-01-17 06:05] LABS: Chloride 98 mmol/L (98-107); Potassium 5.2 mmol/L (3.5-5.1); Sodium 138 mmol/L (136-145)
[2024-01-17 06:06] LABS: Anion Gap 6 (5-15); Band Neutrophils % (manual) 0; Basophils % (manual) 0 (0.0-2.0); Blast Cells 0; Calcium 9.3 mg/dL (8.5-10.1); Carbon Dioxide 34 mmol/L (20-30); Eosinophils % (manual) 0 (0-7); Metamyelocytes % 0; Promyelocytes % 0; Reactive Lymphocytes 0
[2024-01-17 06:11] LABS: BUN/Creatinine Ratio 32.7 (10.0-20.0); Blood Urea Nitrogen 49 mg/dL (9-23); Glucose 285 mg/dL (74-106)
[2024-01-17 08:56] LABS: Lymphocytes % (manual) 4 (10.0-50.0); Monocytes % (manual) 2 (0-12); Myelocytes % 3; Platelet Estimate Adequate
[2024-01-18] VITALS (15 sets, daily range): BP systolic 123–148; BP diastolic 79–86; PULSE 74–104; RESP 16–21; TEMP 97.4–98.3; O2SAT 94–100
[2024-01-18 06:53] LABS: Basophils # (auto) 0 10 ^3/uL (0-0.2); Basophils % (auto) 0.2 % (0.0-2.0); Eosinophils # (auto) 0 10 ^3/uL (0-0.8); Hematocrit 50.7 % (41.0-53.0); Hemoglobin 16.5 g/dL (13.5-17.5); Lymphocytes # (auto) 0.9 10 ^3/uL (0.4-5.4); Mean Corpuscular Hemoglobin 28.9 pg (28.0-32.0); Mean Corpuscular Hgb Conc. 32.6 g/dL (32.0-36.0); Mean Corpuscular Volume 88.5 fL (80.0-100.0); Monocytes # (auto) 0.7 10 ^3/uL (0-1.3); Monocytes % (auto) 2.9 % (0.0-12.0); Neutrophils # (auto) 21.3 10 ^3/uL (1.6-8.6); Neutrophils % (auto) 92.9 % (37.0-80.0); Red Blood Cells 5.73 10^6/uL (4.5-5.90); Red Cell Distribution Width 15.8 % (11.8-14.3); White Blood Cell 22.9 10^3/uL (4.4-10.8)
[2024-01-18 07:00] LABS: Chloride 98 mmol/L (98-107); Potassium 5.2 mmol/L (3.5-5.1); Sodium 134 mmol/L (136-145)
[2024-01-18 07:01] LABS: Carbon Dioxide 29 mmol/L (20-30)
[2024-01-18 07:02] LABS: Calcium 9.7 mg/dL (8.5-10.1)
[2024-01-18 07:06] LABS: BUN/Creatinine Ratio 30.9 (10.0-20.0); Blood Urea Nitrogen 43 mg/dL (9-23); Glucose 249 mg/dL (74-106)
[2024-01-18 07:52] LABS: Anion Gap 7 (5-15)
[2024-01-18 08:46] LABS: Band Neutrophils % (manual) 0; Basophils % (manual) 0 (0.0-2.0); Blast Cells 0; Eosinophils % (manual) 0 (0-7); Metamyelocytes % 0; Myelocytes % 0; Promyelocytes % 0; Reactive Lymphocytes 0
[2024-01-18 08:47] LABS: Lymphocytes % (manual) 5 (10.0-50.0); Monocytes % (manual) 5 (0-12)
[2024-01-18 08:48] LABS: Anisocytosis Slight; Platelet Estimate Adequate
[2024-01-18] MEDS: Ensure HIGH Protein Chocolate 8oz Bottle PO SCH (09:14)
[2024-01-18] MEDS: SODIUM ZIRCONIUM CYCL 10 GM PAK PO ONE (14:11)
[2024-01-18] MEDS: methylPREDNISolone SOD SUCC 40 MG/ML VL IV SCH (20:51)
[2024-01-19] VITALS (18 sets, daily range): BP systolic 118–162; BP diastolic 78–87; PULSE 73–105; RESP 16–20; TEMP 36.6; O2SAT 92–100
[2024-01-19 04:56] LABS: Hematocrit 51.9 % (41.0-53.0); Hemoglobin 16.7 g/dL (13.5-17.5); Mean Corpuscular Hemoglobin 28.7 pg (28.0-32.0); Mean Corpuscular Hgb Conc. 32.3 g/dL (32.0-36.0); Mean Corpuscular Volume 88.8 fL (80.0-100.0); Red Blood Cells 5.84 10^6/uL (4.5-5.90); Red Cell Distribution Width 15.5 % (11.8-14.3); White Blood Cell 22.6 10^3/uL (4.4-10.8)
[2024-01-19 05:11] LABS: Band Neutrophils % (manual) 0; Basophils % (manual) 0 (0.0-2.0); Blast Cells 0; Chloride 98 mmol/L (98-107); Eosinophils % (manual) 0 (0-7); Metamyelocytes % 0; Myelocytes % 0; Potassium 5.2 mmol/L (3.5-5.1); Promyelocytes % 0; Reactive Lymphocytes 0; Sodium 135 mmol/L (136-145)
[2024-01-19 05:12] LABS: Anion Gap 7 (5-15); Calcium 9.4 mg/dL (8.7-10.4); Carbon Dioxide 30 mmol/L (20-30)
[2024-01-19 05:17] LABS: BUN/Creatinine Ratio 30.1 (10.0-20.0); Blood Urea Nitrogen 46 mg/dL (9-23); Glucose 327 mg/dL (74-106)
[2024-01-19 07:26] LABS: Lymphocytes % (manual) 3 (10.0-50.0); Monocytes % (manual) 2 (0-12); Platelet Estimate Decreased; RBC Morphology Normal
[2024-01-19] MEDS: InsuLIN REG 1unit/0.01ml Soln (100units/ml) IV ONE (09:34)
[2024-01-19] MEDS ORDERED: FURO40TA4 PO (10:25)
[2024-01-19] MEDS ORDERED: ATOR-47 PO (10:25)
[2024-01-19] MEDS ORDERED: PRED20TA2 PO (10:29)
[2024-01-19] MEDS ORDERED: SODI5PAK PO (10:31)
[2024-01-19] MEDS ORDERED: SACU1TAB PO (10:38)
[2024-01-19] MEDS ORDERED: ASPI1TAB20 PO (10:38)
[2024-01-19] MEDS ORDERED: CLOP75TA28 PO (10:38)
[2024-01-19] MEDS: SODIUM BICARB 8.4% 50Meq/50ml SYR Vial IV ONE (15:09)
[2024-01-19] MEDS ORDERED: IPRA0.00 IN (15:13)
[2024-01-19] MEDS: CALCIUM GLUC 1,000mg/50ml-NS 50 ML IV ONE (17:37)
== END 2024-01-19 18:30 | disposition hospice, home (50) | DRG 682 ==
LOC: ER 15:04 → EDBD 15:04 → INTOOBSV 18:29 → TELE 18:29 → OBSVTOIN 01-08 14:52 → DOU IN ICU 01-12 23:26 → TELE-CENTR 01-17 18:52
PROVIDERS: ADMIT Student in an Organized Health Care Education/Training Program; ATTEND Student in an Organized Health Care Education/Training Program
PROC: 5A0935A Assistance with Respiratory Ventilation, Less than 24 Consecutive Hours, High Flow/Velocity Cannula (ICD-10-PCS; 2024-01-07)
PROC: 5A0935A Assistance with Respiratory Ventilation, Less than 24 Consecutive Hours, High Flow/Velocity Cannula (ICD-10-PCS; 2024-01-08)
PROC: 5A09357 Assistance with Respiratory Ventilation, Less than 24 Consecutive Hours, Continuous Positive Airway Pressure (ICD-10-PCS; principal; 2024-01-09)
PROC: 5A0935A Assistance with Respiratory Ventilation, Less than 24 Consecutive Hours, High Flow/Velocity Cannula (ICD-10-PCS; 2024-01-09)
PROC: 5A0935A Assistance with Respiratory Ventilation, Less than 24 Consecutive Hours, High Flow/Velocity Cannula (ICD-10-PCS; 2024-01-10)
PROC: 5A0935A Assistance with Respiratory Ventilation, Less than 24 Consecutive Hours, High Flow/Velocity Cannula (ICD-10-PCS; 2024-01-11)
PROC: 5A0935A Assistance with Respiratory Ventilation, Less than 24 Consecutive Hours, High Flow/Velocity Cannula (ICD-10-PCS; 2024-01-12)
PROC: 5A09357 Assistance with Respiratory Ventilation, Less than 24 Consecutive Hours, Continuous Positive Airway Pressure (ICD-10-PCS; 2024-01-13)
PROC: 5A0935A Assistance with Respiratory Ventilation, Less than 24 Consecutive Hours, High Flow/Velocity Cannula (ICD-10-PCS; 2024-01-13)
PROC: 5A09357 Assistance with Respiratory Ventilation, Less than 24 Consecutive Hours, Continuous Positive Airway Pressure (ICD-10-PCS; 2024-01-14)
DX: N17.9 Acute kidney failure, unspecified (principal); I50.23 Acute on chronic systolic (congestive) heart failure; J96.21 Acute and chronic respiratory failure with hypoxia; J11.00 Influenza due to unidentified influenza virus with unspecified type of pneumonia; I13.0 Hypertensive heart and chronic kidney disease with heart failure and stage 1 through stage 4 chronic kidney disease, or unspecified chronic kidney disease; J44.1 Chronic obstructive pulmonary disease with (acute) exacerbation; K50.90 Crohn's disease, unspecified, without complications; I24.89 Other forms of acute ischemic heart disease; J44.0 Chronic obstructive pulmonary disease with (acute) lower respiratory infection; I25.10 Atherosclerotic heart disease of native coronary artery without angina pectoris; F17.210 Nicotine dependence, cigarettes, uncomplicated; E11.22 Type 2 diabetes mellitus with diabetic chronic kidney disease; Z20.822 Contact with and (suspected) exposure to COVID-19; E87.5 Hyperkalemia; I27.20 Pulmonary hypertension, unspecified; Z95.1 Presence of aortocoronary bypass graft; Z90.5 Acquired absence of kidney; I25.2 Old myocardial infarction; Z95.810 Presence of automatic (implantable) cardiac defibrillator; Z99.81 Dependence on supplemental oxygen; Z91.199 Patient's noncompliance with other medical treatment and regimen due to unspecified reason; Z91.148 Patient's other noncompliance with medication regimen for other reason; Z79.899 Other long term (current) drug therapy; Z81.8 Family history of other mental and behavioral disorders; Z79.82 Long term (current) use of aspirin; N18.31 Chronic kidney disease, stage 3a
CPT/HCPCS: 36415; 36600; 71045; 76604; 76775; 80048; 80053; 81001; 82306; 82570; 82805; 83605; 83735; 83880; 83970; 84100; 84300; 84484; 85007; 85025; 85027; 85610; 85730; 87040; 87077; 87081; 87186; 87426; 87804; 93005; 93306; 94640; 94660; 96374; 97110; 97116; 97163; 97530; 99291; G0378; G9035; J1815

== ENCOUNTER 2024-03-08 15:50 | Emergency (ER) | payer OTHER ==
[~2024-03-08] VITALS: Ht 188 cm; Wt 90.0 kg
[2024-03-08 15:50] VITALS: PULSE 0; RESP 0; TEMP 98
[~2024-03-08 15:50] MED LIST changes: +ALBU108A5 INH; -ALBUAER3 IN; -DOXY-448 PO; -FURO1TAB33 PO; +FURO40TA4 PO; +IPRA0.00 IN; -KET2TP TOP; -PRE5T PO; +PRED20TA2 PO; +SODI5PAK PO
[2024-03-08] MEDS ORDERED: AMIODARONE HCL (50 MG/ ML) 3 ML VIAL IV ONE (15:51)
== END 2024-03-08 16:01 ==
LOC: EDUNIT# 15:50 → EDBD 15:50 → ER 15:50
DX: I46.9 Cardiac arrest, cause unspecified (principal); I11.0 Hypertensive heart disease with heart failure; I50.9 Heart failure, unspecified; J44.9 Chronic obstructive pulmonary disease, unspecified; E78.5 Hyperlipidemia, unspecified; I25.2 Old myocardial infarction; I25.10 Atherosclerotic heart disease of native coronary artery without angina pectoris; F17.210 Nicotine dependence, cigarettes, uncomplicated; Z98.890 Other specified postprocedural states; Z79.899 Other long term (current) drug therapy
CPT/HCPCS: 92950; 99285; J0171; J0282; 99291